=== PATIENT | male | born 1980 | race Caucasian/White ===

== ENCOUNTER 2019-08-17 19:39 | Emergency (ER) | payer BC, SELFPAY ==
[2019-08-17 19:40] VITALS: BP 156/90; PULSE 105; RESP 15; TEMP 36.6; O2SAT 96; BMI 30.7
--- NOTE | 2019-08-17 20:12 | US_ITS ---
HISTORY: RLE PAIN MOSTLY POSTERIOR RT KNEE AND CALF- X 1 WEEK EXAMINATION: US Venous Duplex LE Unilat / Limited TECHNIQUE: Corey scale, pulse wave, and color flow Doppler imaging was performed of the lower extremity venous system. The right greater saphenous, common femoral, femoral, and popliteal veins were interrogated. 17 cine clips. 6 images COMPARISON: None FINDINGS: There is normal compression, augmentation, and signal throughout the visualized deep lower extremity veins. Contralateral flow was demonstrated in the left common femoral vein. Superficial varices are present within the medial right thigh and calf US/Venous Duplex Imag/Limited/Uni IMPRESSION: No sonographic evidence of deep venous thrombosis. Superficial varices within the posterior medial distal thigh and calf at 2152 Reported and signed by: Nain Grijalva MD Electronically Signed: Nain Grijalva MD at 21:51 EST Tel , Service support ,
--- NOTE | 2019-08-17 21:13 | ED.VISSUMM ---
- ER Visit Summary Date of Service: 08/17/19 Chief Complaint: Right leg pain History of Present Illness: The patient is a 39 M who presents with right leg pain that has been intermittent over the last 2 months. Patient states pain is over the right distal thigh posteriorly. Patient noted some swelling over this area. Patient states pain radiates into his posterior calf. Patient states he noted some ecchymosis recently. Patient describes the pain as aching. Patient states nothing makes it better or worse. Patient denies any paresthesias or weakness. Patient denies any specific trauma or injury. Physical Examination: Vital signs are stable. Patient is afebrile. Patient is in no acute distress. Musculoskeletal exam reveals a varicose vein over the posterior aspect of the right distal thigh with some tenderness. There is no edema or ecchymosis. There is no bony crepitance or step-off. There is full range of motion of the right lower extremity. Sensation was intact to light touch in all digits. Capillary refill was less than 2 seconds in all digits. Pedal pulses are equal bilaterally. There is no calf tenderness. There is negative Homans sign. There is negative Julian sign. Test Results: Venous duplex of the right lower extremity was obtained. There is no evidence of DVT. The varicose vein was noted. Emergency Department Course and Treatment: Patient was instructed to ice and elevate the right lower extremity. Patient was instructed to take Tylenol or ibuprofen as needed for pain. Patient was instructed to follow-up with his primary care physician in 5 to 7 days for further management. Patient understood and was agreeable with the plan. All questions were answered. Disposition: Discharge home Impression: Varicose vein right thigh This note was generated with [employer] dictation software. It may contain incorrect words, spelling, and punctuation that were not noted in review of the chart prior to signing ED Disposition - Plan for ED Patient: Disposition: Home or Assisted Living Diagnosis: Varicose vein of leg Instructions: Varicose Veins Referrals: Shan Hunt MD [Primary Care Provider] - 5-7 Days
[2019-08-17 21:31] VITALS: BP 135/78; PULSE 82; RESP 16; O2SAT 98
== END 2019-08-17 21:31 | disposition home or self-care (01) ==
PROVIDERS: Emergency Provider Emergency Medicine; PCP Family Medicine
DX: I83.811 Varicose veins of right lower extremity with pain (principal); R21 Rash and other nonspecific skin eruption; J02.9 Acute pharyngitis, unspecified; M54.9 Dorsalgia, unspecified; R05 Cough
CPT/HCPCS: 93971; 99282

== ENCOUNTER → 2021-03-23 16:01 | Outpatient (CLI) | payer BC, SELFPAY | PROVIDERS: PCP Family Medicine; Referring Provider Family Medicine; Visit Provider Family Medicine | DX: Z20.822 Contact with and (suspected) exposure to COVID-19 (principal) | CPT/HCPCS: 87635; U0005; U0003 ==

== ENCOUNTER 2022-11-25 12:36 | Inpatient (IN) | payer BC, SELFPAY ==
[2022-11-25] VITALS (7 sets, daily range): BP systolic 127–171; BP diastolic 89–107; PULSE 86–113; RESP 18–32; TEMP 36.6–37.2; O2SAT 95–97; BMI 25.7; BMI 25.8
--- NOTE | 2022-11-25 12:41 | RAD_ITS ---
STUDY: X-RAY CHEST REASON FOR EXAM: Male, 42 years old. Chest pain TECHNIQUE: Single AP portable view of the chest. COMPARISON: None. FINDINGS: EKG electrodes are seen. The lungs are clear and expanded. There is no demonstrated pleural abnormality. Normal size heart. Normal mediastinum and antelmo. Normal visualized pulmonary arteries. Normal visualized aortic arch and descending thoracic aorta. Normal visualized thoracic spine. Normal visualized ribs, clavicles, and shoulders. There is no demonstrated abnormality of the visualized soft tissue structures of the upper abdomen. RAD/Chest 1 View (Portable) IMPRESSION: Normal x-ray examination of the chest. Electronically Signed: Elder Arias MD at 14:02 EDT ,
--- NOTE | 2022-11-25 12:41 | EKG12_ITS ---
Test Reason : CHEST PAIN/DISCOMFORT Blood Pressure : / mmHG Vent. Rate : 101 BPM Atrial Rate : 101 BPM P-R Int : 184 ms QRS Dur : 076 ms QT Int : 338 ms P-R-T Axes : 041 021 030 degrees QTc Int : 438 ms Sinus tachycardia Septal infarct , age undetermined Abnormal ECG Confirmed by JEANNETTE FRANCOIS, TOMEKA ([id number]), city editor JIN BAILEY ([id number]) on 11/26/2022 9:27:13 AM Referred By: CASA Confirmed By:TOMEKA MACHADO MD
[2022-11-25 13:22] LABS: Absolute Lymphocyte Count 1.11 X10^3/uL (0.83-4.51); Absolute Neutrophil Count 6.3 X10^3/uL (2.0-7.7); Basophil# 0.02 X10^3/uL; Basophil% 0.3 % (0-1); Eosinophil# 0.08 X10^3/uL; Hematocrit 48.2 % (40-54); Hemoglobin 17.5 g/dL (13.0-16.5); Lymphocyte # 1.11 X10^3/ul (0.83-4.51); Lymphocyte % 14.2 % (19-41); Mean Corp Hgb Conc 36.3 g/dL (32-36); Mean Corpuscular Hgb 30.8 pg (27.0-32.0); Mean Corpuscular Volume 84.7 fL (80-94); Mean Platelet Vol. 11.6 fl (6.2-12.0); Monocyte# 0.34 X10^3/uL; Monocyte% 4.3 % (0-10); NRBC Flagged by Analyzer 0 % (0-5); Neutrophil # 6.25 X10^3/uL (2.7-7.7); Neutrophil % 79.9 % (47-70); Platelet Count 286 K/mm3 (150-450); RBC Distribution Width CV 12.4 % (11.6-14.6); RBC Distribution Width SD 37.9 fl (35.1-43.9); Red Blood Count 5.69 M/mm3 (4.6-6.2); White Blood Count 7.8 K/mm3 (4.4-11.0)
--- NOTE | 2022-11-25 13:39 | ED.VIS.CHEST ---
HPI <PAXTON Barrientos - Last Filed: 11/25/22 15:04> History of Present Illness Chief Complaint: Chest Pain Narrative Narrative: 42-year-old male states over the last 6 days he has had an intermittent tight feeling in the left side of his chest into his armpit. It occurs with movement or walking up stairs and then resolves with rest. He has no shortness of breath, nausea, vomiting, or diaphoresis. Today he had a health screening at work and his blood pressure was high so they sent him to the ED. He stopped taking a multivitamin he is started recently because he thought this may be contributing?he takes no other medications. He did have work-up as a teenager and was told at 18 he had aortic stenosis but does not follow with a literacy tutor and never had any issues. He is never smoked and denies drug use. [facility] <PAXTON Barrientos - Last Filed: 11/25/22 15:04> [facility] Medical History (Updated 11/25/22 @ 15:[address] Bhargav Prescott MD) Aortic stenosis Home Medications NK 08/17/19 [History Last Taken Unknown] Allergy/AdvReac Type Severity Reaction Status Date / Time doxycycline Allergy Swelling Verified 11/25/22 12:36 Social History Smoking Status: Never smoker ROS <PAXTON Barrientos - Last Filed: 11/25/22 15:04> ROS ED ROS Narrative Constitutional: Negative for fever, chills, malaise. CVS: Positive for chest pain. Negative for palpitations, syncope. Respiratory: Negative for shortness of breath, cough, orthopnea. GI: Negative for abdominal pain, nausea, vomiting. Neuro: Negative for headache. Musc: Negative for joint pain, swelling. EXAM <PAXTON Barrientos - Last Filed: 11/25/22 15:04> Physical Exam Narrative Exam Narrative: CONST: Patient sitting in no acute distress. EYES: Normal inspection. NECK: Normal inspection. RESP: No respiratory distress, CTAB. CVS: Regular rate and rhythm, no murmur, no gallop. No reproducible tenderness of the chest wall. ABD: Soft and nontender, no guarding or rebound. SKIN: Color normal, no rash, warm, dry, intact. EXTREMITIES: Normal appearance, no pedal edema. No calf tenderness NEURO: Oriented x4. PSYCH: Normal affect. Const Vital Signs: 11/25/22 12:37 11/25/22 13:49 11/25/22 13:49 Temperature 98.0 F Temperature Source Temporal Pulse Rate 113 H 108 H Respiratory Rate 18 Blood Pressure 171/107 H Blood Pressure Mean 128 Pulse Ox 97 97 97 Oxygen Delivery Method Room Air Room Air 11/25/22 14:00 Temperature Temperature Source Pulse Rate 101 H Respiratory Rate 32 H Blood Pressure 144/89 H Blood Pressure Mean 107 Pulse Ox 97 Oxygen Delivery Method Room Air <Dr. Bhargav Prescott MD - Last Filed: 11/25/22 15:20> Physical Exam Const Vital Signs: 11/25/22 12:37 11/25/22 13:49 11/25/22 13:49 Temperature 98.0 F Temperature Source Temporal Pulse Rate 113 H 108 H Respiratory Rate 18 Blood Pressure 171/107 H Blood Pressure Mean 128 Pulse Ox 97 97 97 Oxygen Delivery Method Room Air Room Air 11/25/22 14:00 Temperature Temperature Source Pulse Rate 101 H Respiratory Rate 32 H Blood Pressure 144/89 H Blood Pressure Mean 107 Pulse Ox 97 Oxygen Delivery Method Room Air MDM <PAXTON Barrientos - Last Filed: 11/25/22 15:04> [facility] Narrative Medical decision making narrative: History gathered from: Patient and multiple family members at bedside Patient has had recent exertional chest pain and had a health screening today had elevated blood pressure he came in. He has no chest pain currently. He appears well and nontoxic. Initial BP 171/107, HR 113, otherwise normal vital signs. He is slightly tachycardic on exam with no murmurs. Lungs clear. He has no reproducible pain of his chest wall no pain with movement of his arm. No lower extremity edema or calf tenderness. EKG is sinus rhythm with slight ST depression in V3 and V4. No STEMI. Troponin is 96, delta 91. D-dimer is negative. Glucose is 506 with normal CO2 and anion gap consistent with new diagnosis of diabetes. CXR shows no acute process. Patient will be admitted for diabetes as well as exertional chest pain/NSTEMI and was treated with Lovenox and aspirin. Case was discussed with the hospitalist for admission. Differential: ACS, PE, musculoskeletal pain, costochondritis Lab Data Attestation: I reviewed the patient's lab results. Labs: Laboratory Results - last 24 hr 11/25/22 11/25/22 11/25/22 12:50 12:50 13:54 WBC 7.8 RBC 5.69 Hgb 17.5 H Hct 48.2 MCV 84.7 MCH 30.8 MCHC 36.3 H RDW Std Deviation 37.9 RDW Coeff of Julianne 12.4 Plt Count 286 MPV 11.6 Immature Gran % (Auto) 0.300 Neut % (Auto) 79.9 H Lymph % (Auto) 14.2 L [place] % (Auto) 4.3 Eos % (Auto) 1.0 Baso % (Auto) 0.3 Absolute Neuts (auto) 6.3 Absolute Lymphs (auto) 1.11 Nucleated RBC % 0 D-Dimer Quant (PE/DVT) Sodium 132 L Potassium 4.0 Chloride 97 L Carbon Dioxide 26.0 Anion Gap 9 BUN 14 Creatinine 1.16 Estim Creat Clear Calc 86.53 Est GFR (MDRD) Af Amer 89 Est GFR (MDRD) Non-Af 74 BUN/Creatinine Ratio 12.1 Glucose 506 H* Calcium 9.2 Troponin I High Sens 96 H Acetone Level POC Glucose 476 H* 11/25/22 11/25/22 11/25/22 14:01 14:01 14:01 WBC RBC Hgb Hct MCV MCH MCHC RDW Std Deviation RDW Coeff of Julianne Plt Count MPV Immature Gran % (Auto) Neut % (Auto) Lymph % (Auto) [place] % (Auto) Eos % (Auto) Baso % (Auto) Absolute Neuts (auto) Absolute Lymphs (auto) Nucleated RBC % D-Dimer Quant (PE/DVT) < 0.27 L Sodium Potassium Chloride Carbon Dioxide Anion Gap BUN Creatinine Estim Creat Clear Calc Est GFR (MDRD) Af Amer Est GFR (MDRD) Non-Af BUN/Creatinine Ratio Glucose Calcium Troponin I High Sens 91 H Acetone Level NEGATIVE POC Glucose Radiography Diagnostic Testing: Clinical Impression(s) from Imaging Studies Chest X-Ray 11/25/22 12:41 IMPRESSION: Normal x-ray examination of the chest. Electronically Signed: Elder Arias MD at 14:02 EDT , <Dr. Bhargav Prescott MD - Last Filed: 11/25/22 15:20> [facility] Lab Data Labs: Laboratory Results - last 24 hr 11/25/22 11/25/22 11/25/22 12:50 12:50 13:54 WBC 7.8 RBC 5.69 Hgb 17.5 H Hct 48.2 MCV 84.7 MCH 30.8 MCHC 36.3 H RDW Std Deviation 37.9 RDW Coeff of Julianne 12.4 Plt Count 286 MPV 11.6 Immature Gran % (Auto) 0.300 Neut % (Auto) 79.9 H Lymph % (Auto) 14.2 L [place] % (Auto) 4.3 Eos % (Auto) 1.0 Baso % (Auto) 0.3 Absolute Neuts (auto) 6.3 Absolute Lymphs (auto) 1.11 Nucleated RBC % 0 D-Dimer Quant (PE/DVT) Sodium 132 L Potassium 4.0 Chloride 97 L Carbon Dioxide 26.0 Anion Gap 9 BUN 14 Creatinine 1.16 Estim Creat Clear Calc 86.53 Est GFR (MDRD) Af Amer 89 Est GFR (MDRD) Non-Af 74 BUN/Creatinine Ratio 12.1 Glucose 506 H* Calcium 9.2 Troponin I High Sens 96 H Acetone Level POC Glucose 476 H* 11/25/22 11/25/22 11/25/22 14:01 14:01 14:01 WBC RBC Hgb Hct MCV MCH MCHC RDW Std Deviation RDW Coeff of Julianne Plt Count MPV Immature Gran % (Auto) Neut % (Auto) Lymph % (Auto) [place] % (Auto) Eos % (Auto) Baso % (Auto) Absolute Neuts (auto) Absolute Lymphs (auto) Nucleated RBC % D-Dimer Quant (PE/DVT) < 0.27 L Sodium Potassium Chloride Carbon Dioxide Anion Gap BUN Creatinine Estim Creat Clear Calc Est GFR (MDRD) Af Amer Est GFR (MDRD) Non-Af BUN/Creatinine Ratio Glucose Calcium Troponin I High Sens 91 H Acetone Level NEGATIVE POC Glucose Radiography Diagnostic Testing: Clinical Impression(s) from Imaging Studies Chest X-Ray 11/25/22 12:41 IMPRESSION: Normal x-ray examination of the chest. Electronically Signed: Elder Arias MD at 14:02 EDT , Rhythm Strip Rhythm Strip: Sinus Tach Rate: 105 Ectopy: None EKG Initial EKG: Attestation: I personally reviewed and interpreted this EKG as follows: Interpretation: No Acute Injury Pattern and S-T Depression (Septal leads only. No ST elevation.) Prior EKG tracings: not available for review Prior: No Prior Management Discussion w/another healthcare provider: Hospitalist Treatment and Re-Evaluation Comments:: Seen and evaluated independently and in conjunction with physician assistant golf professional. Agree with notes above unless documented otherwise. Exertional visceral left-sided chest discomfort with radiation into the axilla and proximal left upper extremity for the past 5 or 6 days. No symptoms at rest. Nonpleuritic. No syncope, near syncope, diaphoresis, cough, fevers or chills. Incidentally he states he has had significant urinary frequency for about the past 2 months. Has not seen his doctor for several years, basically goes when he feels like he needs to. On exam is well-appearing in no distress mild tachycardia, clear to auscultation throughout, speaking in full sentences, no pedal edema or calf tenderness. Viewed/reviewed cardiac work-up and significant hyperglycemia. Troponin abnormal twice. Will give aspirin, Lovenox, plan is for admission. Discharge Plan Triage Chief Complaint: Chest Pain ED Midlevel Provider: Selam Lira ED Provider: Bhargav Prescott Dx/Rx/DC Orders Clinical Impression: ACS (acute coronary syndrome), Diabetes mellitus, new onset Primary Care Provider: Shan Hunt Disposition Disposition: Acute Care Hospital [facility]
[2022-11-25 13:51] LABS: Anion Gap 9 (5-15); BUN 14 mg/dL (7-18); BUN/Creat Ratio 12.1 RATIO (10-20); Calcium,Total 9.2 mg/dL (8.5-10.1); Chloride 97 mmol/L (98-107); Creatinine, Serum 1.16 mg/dL (0.70-1.30); EST Glomerular Filtration Rate 74 mL/min (>60); Est Glom Filt Rate - Afr Amer 89 mL/min (>60); Estimated Creatinine Clearance 86.53 ml/min; Glucose 506 mg/dL (74-106); Sodium Level 132 mmol/L (136-145); Troponin-I HS (w/2H Reflex) 96 pg/mL (3.0-78.0)
[2022-11-25] MEDS: 0.9% Normal Saline 1,000 ML 999 ML IV (14:07)
[2022-11-25 14:15] LABS: Bedside Glucose 476 mg/dL (74-106)
[2022-11-25 14:21] LABS: D-Dimer Quantitative (DVT/PE) < 0.27 FEU/ug/m (0.27-0.49)
[2022-11-25 14:22] LABS: Troponin-I HS 91 pg/mL (3.0-78.0)
--- NOTE | 2022-11-25 15:04 | PCM.HP.STD ---
HPI - General General Date of Admission: 11/25/22 Date of Service: 11/25/22 Chief Complaint: Atypical chest pain for 5 days, high blood pressure, and hyperglycemia HPI Narrative LAZ HERRERA, is a 42 M to ED for atypical chest tightness over left lateral side with radiation to left armpit/axillary region since last Tuesday for 5 days. He describes chest tightness as short lasting for few minutes, comes when he starts walking last for few minutes and then goes away. It happens all throughout the day about 10-12 times and increasingly more frequent. This is nonexertional as he works as a computer science intern mainly desktop job. He denies other associated symptoms of shortness of breath, palpitation, flutters, dizziness or syncope. His blood pressure in ER was high 171/107, heart rate 113/min. No hypoxia or tachypnea. Twelve-lead done in the EKG shows sinus tachycardia otherwise no specific ST-T changes suggesting ischemia. History troponin 96 and 91. In ED, blood pressure is spontaneously got better 144/89. Patient also found to have hyperglycemia, glucose 506 in BMP. Patient states for last 2-month he wakes up at night twice to drink more water and urination consistent with polydipsia and polyuria. Family history: Her father had coronary bypass surgery at age of 39. His mother also has ND/coronary artery disease and stents. Social history: Denies history of smoking or heavy alcohol drinking. No substance use. [facility] Medical History Aortic stenosis Home Medications NK 08/17/19 [History Last Taken Unknown] Allergy/AdvReac Type Severity Reaction Status Date / Time doxycycline Allergy Swelling Verified 11/25/22 12:36 Social History Smoking Status: Never smoker ROS ROS Narrative Constitutional: Denies fatigue and weakness. No fever. HEENT: Reports systems reviewed and no addt'l complaints, except as documented Respiratory/Chest: No acute shortness of breath or respiratory distress or wheezing. CVS: As described in HPI. History of aortic stenosis. Gastrointestinal: Denies coffee ground emesis, hematemesis or vomiting Genitourinary: Polyuria and increased frequency for 2 months. Denies burning urination. Musculoskeletal: Denies acute joint pain or limited range of motion. No acute injury Neurologic: Denies seizure-like symptoms. No strokelike symptoms. skin: No ulcer. No rash Endocrinology: New onset diabetes mellitus. Reports systems reviewed and no addt'l complaints, except as documented Hematologic/Lymphatic: Reports systems reviewed and no addt'l complaints, except as documented Rest 14 ROS are negative except as mentioned in HPI Vital Signs Vital Signs Vital Signs: 11/25/22 12:37 11/25/22 13:49 11/25/22 13:49 Temperature 98.0 F Temperature Source Temporal Pulse Rate 113 H 108 H Respiratory Rate 18 Blood Pressure 171/107 H Blood Pressure Mean 128 Pulse Ox 97 97 97 Oxygen Delivery Method Room Air Room Air 11/25/22 14:00 Temperature Temperature Source Pulse Rate 101 H Respiratory Rate 32 H Blood Pressure 144/89 H Blood Pressure Mean 107 Pulse Ox 97 Oxygen Delivery Method Room Air Weight Weight: 179 lb 3.2 oz Body Mass Index (BMI) 25.7 Physical Exam Narrative General: Alert, Oriented x3, Cooperative HEENT: Atraumatic, PERRLA, EOMI, Normocephalic Oral: Oral mucosa dry. No Gingival or Mucosal Lesions/ Ulcerations Neck: Supple, No JVD, Negative Carotid Bruits Lungs: Air entry diminished in bilateral lung bases. No crepitation/rhonchi Cardiovascular: Sinus tachycardia, Normal S1, Normal S2, no significant/audible murmur. Abdomen: Bowel Sounds Present, Soft, Non Tender, Non-Distended : No renal angle tenderness. No suprapubic tenderness. Extremities: No edema, Capillary Refill Less than 3 Seconds Skin: No rashes, No breakdown Musculoskeletal: No Tenderness to Palpation of Joints or Extremities Neurological: Cranial nerves II-XII grossly intact, DTR 2+/4 and Symmetrical, Neuro grossly intact Psych/Mental Status: Normal Affect, Appropriate. Results Lab / Micro Data Result Diagrams: 11/25/22 12:50 11/25/22 12:50 Labs: Laboratory Results - last 24 hr 11/25/22 12:50: WBC 7.8, RBC 5.69, Hgb 17.5 H, Hct 48.2, MCV 84.7, MCH 30.8, MCHC 36.3 H, RDW Std Deviation 37.9, RDW Coeff of Julianne 12.4, Plt Count 286, MPV 11.6, Immature Gran % (Auto) 0.300, Neut % (Auto) 79.9 H, Lymph % (Auto) 14.2 L, [place] % (Auto) 4.3, Eos % (Auto) 1.0, Baso % (Auto) 0.3, Absolute Neuts (auto) 6.3, Absolute Lymphs (auto) 1.11, Nucleated RBC % 0 11/25/22 12:50: Sodium 132 L, Potassium 4.0, Chloride 97 L, Carbon Dioxide 26.0, Anion Gap 9, BUN 14, Creatinine 1.16, Estim Creat Clear Calc 86.53, Est GFR (MDRD) Af Amer 89, Est GFR (MDRD) Non-Af 74, BUN/Creatinine Ratio 12.1, Glucose 506 H*, Calcium 9.2, Troponin I High Sens 96 H 11/25/22 13:54: POC Glucose 476 H* 11/25/22 14:01: D-Dimer Quant (PE/DVT) < 0.27 L 11/25/22 14:01: Acetone Level NEGATIVE 11/25/22 14:01: Troponin I High Sens 91 H Radiology Impression Chest X-Ray 11/25/22 12:41 IMPRESSION: Normal x-ray examination of the chest. Electronically Signed: lEder Arias MD at 14:02 EDT , Assessment & Plan Assessment/Plan (1) ACS (acute coronary syndrome): (2) Diabetes mellitus, new onset: PLAN: Plan This is 42-year-old gentleman came to ED for atypical chest pain along with high blood pressure and hyperglycemia. 1. Atypical chest tightness possible acute coronary syndrome/unstable angina: Patient is being admitted in PCU on telemetry. First troponin 96-second troponin 91. D-dimer negative. 2 Twelve-lead EKG individually reviewed and does not show acute significant ST-T changes suggestive of acute ischemia.FRANKIE risk score 3 with 3 coronary artery disease risk factors, angina and positive cardiac marker. [employer] is consulted. Cycle cardiac enzymes. Currently patient does not have chest pain. Patient on aspirin, 1 loading therapeutic dose enoxaparin given in ED, carvedilol and high intensity atorvastatin started. Nitro sublingual as needed for chest pain. Serum magnesium and phosphorus level are normal. 2D echo is ordered. 2. New onset hyperglycemia most likely diabetes mellitus type 2: Glucose was 506 in BMP. Fingerstick 476. Patient also has 2-month history of polydipsia, polyuria and polyphagia. In conclusion it seems patient has type 2 diabetes mellitus. A1c ordered for tomorrow AM. Accu-Chek before meals and cover with Humalog sliding and started on long-acting insulin. 3. Uncontrolled high blood pressure: Patient does not have diagnosis of hypertension but blood pressure high in the 170s systolic in 150s. Started on lisinopril 10 mg daily. 4. Strong family history of coronary artery disease father had CABG at the age of 39 and mother has stents. 5. VTE prophylaxis: On therapeutic dose of Lovenox. Laboratory Results 11/25/22 12:50: WBC 7.8, RBC 5.69, Hgb 17.5 H, Hct 48.2, MCV 84.7, MCH 30.8, MCHC 36.3 H, RDW Std Deviation 37.9, RDW Coeff of Julianne 12.4, Plt Count 286, MPV 11.6, Immature Gran % (Auto) 0.300, Neut % (Auto) 79.9 H, Lymph % (Auto) 14.2 L, [place] % (Auto) 4.3, Eos % (Auto) 1.0, Baso % (Auto) 0.3, Absolute Neuts (auto) 6.3, Absolute Lymphs (auto) 1.11, Nucleated RBC % 0 11/25/22 12:50: Sodium 132 L, Potassium 4.0, Chloride 97 L, Carbon Dioxide 26.0, Anion Gap 9, BUN 14, Creatinine 1.16, Estim Creat Clear Calc 86.53, Est GFR (MDRD) Af Amer 89, Est GFR (MDRD) Non-Af 74, BUN/Creatinine Ratio 12.1, Glucose 506 H*, Calcium 9.2, Troponin I High Sens 96 H 11/25/22 13:54: POC Glucose 476 H* 11/25/22 14:01: D-Dimer Quant (PE/DVT) < 0.27 L 11/25/22 14:01: Acetone Level NEGATIVE 11/25/22 14:01: Troponin I High Sens 91 H 11/25/22 14:01: Phosphorus 3.3, Magnesium 2.1 11/25/22 15:00: Urine Color Yellow, Urine Clarity Clear, Urine pH 7.0, Ur Specific [place] 1.010, Urine Protein Negative, Urine Glucose (UA) 1000 H, Urine Ketones 15 H, Urine Occult Blood Negative, Urine Nitrite Negative, Urine Bilirubin Negative, Urine Urobilinogen Normal, Ur Leukocyte Esterase Negative, Urine RBC 0 SEEN, Urine WBC 0 SEEN, Ur Squamous Epith Cells 0-5 SEEN, Urine Bacteria 0 SEEN, Urine Mucus 0 SEEN Charges/Coding Visit Charges Inpatient E&M: 36530 Init Hosp L3
[2022-11-25] MEDS: Enoxaparin 80 MG/0.8 ML Syringe SC (15:06)
[2022-11-25 15:23] LABS: Bacteria 0 SEEN /hpf (None Seen); Mucous, Urine 0 SEEN /hpf (<or=2+); Red Blood Cells-Urine 0 SEEN /hpf (0-5); White Blood Cells 0 SEEN /hpf (0-5)
[2022-11-25] MEDS: Aspirin 81 MG TAB.CHEW 162 MG PO (15:26)
[2022-11-25 16:09] LABS: Color, Urine Yellow (Yellow); Glucose, Dipstick 1000 mg/dl (Normal); Ketone-Dipstick 15 mg/dl (Negative); Leukocyte Esterase-Dipstick Negative /ul (Negative); Nitrite-Dipstick Negative (Negative); Occult Blood-Urine Negative /ul (Negative); Protein-Dipstick Negative (Negative); Urine Bilirubin Dipstick Negative (Negative); Urine Clarity Clear (Clear); Urine Urobilinogen Normal (Normal)
--- NOTE | 2022-11-25 16:19 | EKG12_ITS ---
Test Reason : AM EKG Blood Pressure : / mmHG Vent. Rate : 074 BPM Atrial Rate : 074 BPM P-R Int : 180 ms QRS Dur : 098 ms QT Int : 408 ms P-R-T Axes : 020 003 009 degrees QTc Int : 452 ms Normal sinus rhythm Normal ECG When compared with ECG of 25-NOV-2022 16:49, MANUAL COMPARISON REQUIRED, DATA IS UNCONFIRMED Confirmed by JEANNETTE FRANCOIS, TOMEKA ([id number]), desk editor JIN BAILEY ([id number]) on 11/26/2022 1:10:06 PM Referred By: LAURA Confirmed By:TOMEKA MACHADO MD
[2022-11-25 16:32] LABS: Magnesium 2.1 mg/dL (1.6-2.6); Phosphorus 3.3 mg/dL (2.5-4.9)
[2022-11-25 16:39] LABS: Squamous Epithelial Cells - UA 0-5 SEEN /hpf (0-5)
[2022-11-25] MEDS: 0.9% Normal Saline 1,000 ML 150 ML IV ×2 (17:17→23:51)
[2022-11-25] MEDS: Carvedilol 12.5 MG Tablet PO ×2 (17:55→21:38)
--- NOTE | 2022-11-25 18:04 | ECHOCS_ITS ---
Reason For Study: Chest Pain Procedure This was a 2D Doppler, Color Flow transthoracic echocardiogram. Contrast injection was performed. Exam performed portable in patient room. Left Ventricle Normal LV size. Moderate segmental systolic dysfunction (see wall motion). The estimated ejection fraction is 35 %. Mid-Anterior : Severely Hypokinetic. Mid-anteroseptal : Hypokinetic. [place] : Severely Hypokinetic. Right Ventricle Normal RV size. Normal systolic function. Atria Normal left atrium. Normal right atrium. Mitral Valve Normal mitral valve. Mild (1+) eccentric mitral valve insufficiency. Tricuspid Valve Normal tricuspid valve. Mild tricuspid valve insufficiency. Aortic Valve Bicuspid aortic valve. Mild (1+) eccentric aortic valve insufficiency. Pulmonic Valve Normal pulmonic valve. Great Vessels Normal aortic root. The pulmonary artery is normal size. Normal inferior vena cava. Pericardium/Pleural No pericardial effusion. Medication Diluted definity 3.5ml given slow IV push to enhance endocardial definition. MMode/2D Measurements & Calculations LVIDd: 5.5 cm IVSd: 1.1 cm Ao root diam: 3.6 cm LVIDs: 4.4 cm LVPWd: 0.73 cm LA dimension: 3.5 cm RVDd: 3.3 cm FS: 19.9 % LAV(MOD-bp): 31.1 ml LVAd ap4: 45.5 cm2 SV(MOD-sp4): 78.9 ml LAV(MOD-bp) Indexed: 15.6 ml/m2 LVLd ap4: 9.4 cm LAV(MOD-sp2): 30.7 ml EDV(MOD-sp4): 178.7 ml LAV(MOD-sp4): 28.2 ml EDV(sp4-el): 187.3 ml LVAs ap4: 31.3 cm2 LVLs ap4: 7.9 cm ESV(MOD-sp4): 99.7 ml ESV(sp4-el): 104.6 ml EF(MOD-sp4): 44.2 % EF(sp4-el): 44.2 % SV(sp4-el): 82.7 ml Aortic Valve Planimetry: 4.0 cm2 LA A4 area: 13.0 cm2 RA A4 area: 12.3 cm2 Time Measurements MV dec time: 0.23 sec Doppler Measurements & Calculations MV E max kulwinder: 59.2 cm/sec Lat Peak E' Kulwinder: 9.5 cm/sec Med Peak E' Kulwinder: 9.6 cm/sec MV A max kulwinder: 50.7 cm/sec E/E' lat: 6.3 E/E' med: 6.2 MV E/A: 1.2 MV V2 max: 77.2 cm/sec MV P1/2t max kulwinder: 77.8 cm/sec Ao V2 max: 145.1 cm/sec MV max P.4 mmHg MV P1/2t: 70.7 msec Ao max P.5 mmHg MV V2 mean: 42.2 cm/sec MV dec slope: 322.3 cm/sec2 Ao V2 mean: 105.9 cm/sec MV mean P.84 mmHg MVA(P1/2t): 3.1 cm2 Ao mean P.1 mmHg MV V2 VTI: 17.8 cm Ao V2 VTI: 27.2 cm AV (velocity ratio): 0.56 LV V1 max: 76.0 cm/sec MR max kulwinder: 509.6 cm/sec PA V2 max: 76.5 cm/sec LV V1 max P.3 mmHg MR max P.9 mmHg PA V2 mean: 50.2 cm/sec LV V1 mean P.4 mmHg MR mean kulwinder: 398.0 cm/sec LV V1 mean: 56.5 cm/sec MR mean P.4 mmHg LV V1 VTI: 15.2 cm MR VTI: 169.5 cm TR max kulwinder: 208.1 cm/sec TR max P.3 mmHg ECHO/Echo Complete W/ Contrast Interpretation Summary Moderate segmental systolic dysfunction (see wall motion). Normal LV size. The estimated ejection fraction is 35 %. Bicuspid aortic valve. Mild (1+) eccentric aortic valve insufficiency. Mild (1+) eccentric mitral valve insufficiency. Contrast injection was performed. Ordering Physician: Nirmal Cunningham Referring Physician: Shan Hunt Performed By: Don Maier RCS
--- NOTE | 2022-11-25 18:07 | PCM.CONS.C ---
Assessment & Plan Assessment/Plan (1) ACS (acute coronary syndrome): (2) Diabetes mellitus, new onset: PLAN: Plan Patient is a 42-year-old/significant family history of CAD Presented with symptoms of chest pain. Described as intermittent tight feeling in the left side of the chest radiating to the left arm mainly noted with movement or walking upstairs and resolve with rest. No other associated symptoms Currently not on any medication. Bedside cardiac examination is normal Review of the EKG showed minor change in the anterior lead Subsequent evaluation with cardiac markers showed elevated high sensitive troponin Cardiac care plan recommendations; 1. We will treat as non-STEMI, troponins high 96, blood glucose 506/renal function normal with a creatinine of 1.16 D-dimer less than 0.27 with heparin, aspirin, atorvastatin, beta-yesenia carvedilol 2. Patient is newly diagnosed diabetes mellitus with significant elevated blood glucose to monitor the diabetes with insulin Sliding scale 3. Discussed in detail the cardiac care plan with the patient, nursing staff and the family Recommended to proceed with cardiac catheterization/right radial artery approach HPI Consult Data Date of Consult: 11/25/22 HPI Narrative Reason for Consultation: CAD/NSTEMI/newly diagnosed diabetes HPI Narrative: LAZ HERRERA, is a 42 M who presents [facility] Medical History Aortic stenosis Home Medications NK 08/17/19 [History Last Taken Unknown] Allergy/AdvReac Type Severity Reaction Status Date / Time doxycycline Allergy Swelling Verified 11/25/22 12:36 Social History Smoking Status: Never smoker ROS ROS Narrative 14 point review of system unremarkable apart from current presentation With symptoms of chest pain Physical Exam Narrative Evaluation and examination along with the nursing staff Family at bedside Comfortable not having active chest pain at time of evaluation Cardiac rhythm is normal sinus Cardiovascular exam S1-S2 regular Chest exam clear to auscultation bilateral Examination of lower extremity no lower extremity edema, pedal pulses palpable. Risk Stratification Risk Stratification Applicable: Yes Age >/= 65: No >/= 3 CAD Risk Factors (HTN, HLD, DM, family hx of CAD, or current smoker): Yes Aspirin Use in the Past 7 Days: Yes Severe Angina (>/= episodes in 24 hours): Yes EKG ST Changes >/= 0.5mm: Yes Positive Cardiac Marker: Yes FRANKIE Risk Stratification Score: 5 FRANKIE % Risk: 25% Risk Objective Data Vital Signs: Vital Signs Temp Pulse Resp BP Pulse Ox O2 Del Method 97.9 F 93 18 152/96 H 95 Room Air 11/25/22 16:30 11/25/22 16:30 11/25/22 16:30 11/25/22 16:30 11/25/22 17:05 11/25/22 17:05 Oxygen Delivery Method Room Air Weight: 180 lb Body Mass Index (BMI) 25.8 Intake & Output: Intake and Output for Last 24 Hours 11/23/22 11/24/22 11/25/22 23:59 23:59 23:59 Intake Total 1650 / 1650 Balance 1650 / 1650 Lab / Micro Data Result Diagrams: 11/25/22 12:50 11/25/22 12:50 Labs: Laboratory Results - last 24 hr 11/25/22 12:50: WBC 7.8, RBC 5.69, Hgb 17.5 H, Hct 48.2, MCV 84.7, MCH 30.8, MCHC 36.3 H, RDW Std Deviation 37.9, RDW Coeff of Julianne 12.4, Plt Count 286, MPV 11.6, Immature Gran % (Auto) 0.300, Neut % (Auto) 79.9 H, Lymph % (Auto) 14.2 L, [place] % (Auto) 4.3, Eos % (Auto) 1.0, Baso % (Auto) 0.3, Absolute Neuts (auto) 6.3, Absolute Lymphs (auto) 1.11, Nucleated RBC % 0 11/25/22 12:50: Sodium 132 L, Potassium 4.0, Chloride 97 L, Carbon Dioxide 26.0, Anion Gap 9, BUN 14, Creatinine 1.16, Estim Creat Clear Calc 86.53, Est GFR (MDRD) Af Amer 89, Est GFR (MDRD) Non-Af 74, BUN/Creatinine Ratio 12.1, Glucose 506 H*, Calcium 9.2, Troponin I High Sens 96 H 11/25/22 13:54: POC Glucose 476 H* 11/25/22 14:01: D-Dimer Quant (PE/DVT) < 0.27 L 11/25/22 14:01: Acetone Level NEGATIVE 11/25/22 14:01: Troponin I High Sens 91 H 11/25/22 14:01: Phosphorus 3.3, Magnesium 2.1 11/25/22 15:00: Urine Color Yellow, Urine Clarity Clear, Urine pH 7.0, Ur Specific [place] 1.010, Urine Protein Negative, Urine Glucose (UA) 1000 H, Urine Ketones 15 H, Urine Occult Blood Negative, Urine Nitrite Negative, Urine Bilirubin Negative, Urine Urobilinogen Normal, Ur Leukocyte Esterase Negative, Urine RBC 0 SEEN, Urine WBC 0 SEEN, Ur Squamous Epith Cells 0-5 SEEN, Urine Bacteria 0 SEEN, Urine Mucus 0 SEEN Rhythm Strip Rhythm Strip: Sinus Tach Rate: 105 Ectopy: None Cardiology Labs/Tests 11/25/22 12:50: WBC 7.8, RBC 5.69, Hgb 17.5 H, Hct 48.2, MCV 84.7, MCH 30.8, MCHC 36.3 H, Plt Count 286, MPV 11.6, Immature Gran % (Auto) 0.300, Neut % (Auto) 79.9 H, Lymph % (Auto) 14.2 L, [place] % (Auto) 4.3, Eos % (Auto) 1.0, Baso % (Auto) 0.3, Absolute Neuts (auto) 6.3, Nucleated RBC % 0 11/25/22 12:50: Sodium 132 L, Potassium 4.0, Chloride 97 L, Carbon Dioxide 26.0, Anion Gap 9, BUN 14, Creatinine 1.16, Est GFR (MDRD) Af Amer 89, Est GFR (MDRD) Non-Af 74, BUN/Creatinine Ratio 12.1, Glucose 506 H*, Calcium 9.2 11/25/22 14:01: D-Dimer Quant (PE/DVT) < 0.27 L 11/25/22 14:01: Phosphorus 3.3, Magnesium 2.1 11/25/22 15:00: Urine Color Yellow, Urine Clarity Clear, Urine pH 7.0, Ur Specific [place] 1.010, Urine Protein Negative, Urine Glucose (UA) 1000 H, Urine Ketones 15 H, Urine Occult Blood Negative, Urine Nitrite Negative, Urine Bilirubin Negative, Urine Urobilinogen Normal, Ur Leukocyte Esterase Negative, Urine RBC 0 SEEN, Urine WBC 0 SEEN Rhythm: EKG: ECHO: Stress Test: Cardiac Cath: PCI: CT Surgery: Holter monitor: EPS: PPM: CXR: Chest CT Scan: Radiography Diagnostic Testing: Radiology Impression Chest X-Ray 11/25/22 12:41 IMPRESSION: Normal x-ray examination of the chest. Electronically Signed: Elder Arias MD at 14:02 EDT ,
[2022-11-25 18:29] LABS: Partial Thromboplast Time 26.2 Seconds (24.1-36.2)
[2022-11-25] MEDS: HEPARIN/D5w 25,000 UNITS 25,000 UNITS/250 ML IV.SOLN. 10 UNITS CONT INF (18:40)
[2022-11-25 19:47] LABS: Troponin-I HS 125 pg/mL (3.0-78.0)
[2022-11-25] MEDS: Atorvastatin Calcium 40 MG Tablet PO (21:38)
[2022-11-25] MEDS: Insulin Lispro 100 UNIT/ML INSULN.PEN SC (22:24)
[2022-11-26] VITALS (14 sets, daily range): BP systolic 98–127; BP diastolic 58–91; PULSE 74–92; RESP 16–18; TEMP 36.4–36.9; O2SAT 95–99
[2022-11-26 00:28] LABS: Partial Thromboplast Time 55.8 Seconds (24.1-36.2)
--- NOTE | 2022-11-26 00:48 | NURSING ---
PTT in goal at 55.8, heparin gtt maintained @10ml/hr and keypad locked
[2022-11-26 01:35] LABS: Bedside Glucose 322 mg/dL (74-106)
--- NOTE | 2022-11-26 05:55 | EKG12_ITS ---
Test Reason : CP ADMIN Blood Pressure : / mmHG Vent. Rate : 088 BPM Atrial Rate : 088 BPM P-R Int : 172 ms QRS Dur : 096 ms QT Int : 362 ms P-R-T Axes : 025 006 012 degrees QTc Int : 438 ms Normal sinus rhythm Minimal voltage criteria for LVH, may be normal variant ( R in aVL ) Borderline ECG When compared with ECG of 25-NOV-2022 12:45, MANUAL COMPARISON REQUIRED, DATA IS UNCONFIRMED Confirmed by JEANNETTE FRANCOIS, TOMEKA ([id number]), photographic editor JIN BAILEY ([id number]) on 11/26/2022 1:11:13 PM Referred By: Confirmed By:TOMEKA MACHADO MD
[2022-11-26 06:21] LABS: Absolute Lymphocyte Count 2.29 X10^3/uL (0.83-4.51); Absolute Neutrophil Count 3.6 X10^3/uL (2.0-7.7); Basophil# 0.04 X10^3/uL; Basophil% 0.6 % (0-1); Eosinophil# 0.19 X10^3/uL; Eosinophils% 2.9 % (0-5); Hematocrit 41.3 % (40-54); Hemoglobin 14.1 g/dL (13.0-16.5); Lymphocyte # 2.29 X10^3/ul (0.83-4.51); Mean Corp Hgb Conc 34.1 g/dL (32-36); Mean Corpuscular Hgb 30.1 pg (27.0-32.0); Mean Corpuscular Volume 88.1 fL (80-94); Mean Platelet Vol. 11.5 fl (6.2-12.0); Monocyte# 0.44 X10^3/uL; Monocyte% 6.7 % (0-10); NRBC Flagged by Analyzer 0 % (0-5); Neutrophil # 3.56 X10^3/uL (2.7-7.7); Neutrophil % 54.5 % (47-70); Platelet Count 215 K/mm3 (150-450); RBC Distribution Width CV 12.1 % (11.6-14.6); RBC Distribution Width SD 38.5 fl (35.1-43.9); Red Blood Count 4.69 M/mm3 (4.6-6.2); White Blood Count 6.5 K/mm3 (4.4-11.0)
[2022-11-26] MEDS: Aspirin E.C. 81 MG Tablet PO (06:21)
[2022-11-26] MEDS: Carvedilol 12.5 MG Tablet PO ×2 (06:21→20:58)
[2022-11-26] MEDS: Lisinopril 10 MG Tablet PO (06:21)
[2022-11-26 06:31] LABS: Partial Thromboplast Time 60.4 Seconds (24.1-36.2)
[2022-11-26] MEDS: Insulin Lispro 100 UNIT/ML INSULN.PEN SC ×4 (06:41→22:05)
[2022-11-26 06:55] LABS: Bedside Glucose 280 mg/dL (74-106)
[2022-11-26 07:26] LABS: Anion Gap 5 (5-15); BUN 10 mg/dL (7-18); Calcium,Total 7.7 mg/dL (8.5-10.1); Chloride 105 mmol/L (98-107); Cholesterol 146 mg/dL (200); Creatinine, Serum 0.77 mg/dL (0.70-1.30); EST Glomerular Filtration Rate 118 mL/min (>60); Est Glom Filt Rate - Afr Amer 143 mL/min (>60); Estimated Creatinine Clearance 130.36 ml/min; Glucose 284 mg/dL (74-106); High Density Lipoprotein 21 mg/dL; Potassium 3.5 mmol/L (3.5-5.1); Sodium Level 136 mmol/L (136-145); Thyroid Stim Hormone (TSH) 2.04 uIU/mL (0.358-3.74); Triglycerides 317 mg/dL; Very Low Density Lipoprotein 63 mg/dL (5-40)
[2022-11-26 07:32] LABS: Hemoglobin A1c 12.2 % (3.8-5.6)
--- NOTE | 2022-11-26 09:24 | CL.D_ITS ---
Patient Name: LAZ HERRERA Study Date: 11/26/2022 Performing: Steven Watson MD Ht: 70 inches 177.8 cm : 1980 Wt: 180.01 lbs 81.65 kg Age: 42 Gender: male BSA: 2 PROCEDURE(S) PERFORMED DC02-(03578)LHC/COR IC12-(58015/C9600)DONA W/WO PTCA, SINGLE CORONARY ARTERY CLINICAL PROFILE AND INDICATIONS Indications: Worsening Angina Heart Failure: None Stress/Imaging Stress/Image Study Performed: No CAD Presentations: Unstable angina. CONCLUSIONS Severe single-vessel disease with high-grade proximal LAD stenosis, moderate diagonal disease and moderate circumflex and right coronary artery stenosis. Bicuspid aortic valve. RECOMMENDATIONS Referred for immediate PCI We will follow-up on bicuspid aortic valve DESCRIPTION OF PROCEDURE The patient arrived to the procedure lab. The risks and benefits of the procedure as well as a full description of our services here and current unavailability of surgical backup were fully explained to the patient and/or their significant other prior to the catheterization. The Timeout was completed, verifying the correct patient and procedure. The patient's procedural site was prepped and draped in the usual fashion. Local anesthetic was given subcutaneously to right radial region with Lidocaine 2%. Using a modified Seldinger technique, arterial access was obtained via the right radial artery, a 6Fr sheath was inserted. Left Coronary Artery selective angiography was performed in multiple views using a 5 Fr. 4.0 [place] catheter. Right Coronary Artery selective angiography was then performed in multiple views using a 5 Fr. 4.0 [place] catheter.The arterial sheath was pulled and a TR Band was applied for hemostasis. 10cc of air CORONARY ANGIOGRAPHY DOMINANCE: Right Dominant LEFT HEART ASSESSMENT Left Ventricular Ejection Fraction: by Echo 35 % Anterior Hypokinesis - Moderate Depressed Left Ventricular systolic function LEFT MAIN: Angiographically normal LEFT ANTERIOR DESCENDING ARTERY: PROX LAD: 99 % Stenosis DIAGONAL 1: Proximal - 60 % Stenosis CIRCUMFLEX ARTERY: Mild luminal irregularities RIGHT CORONARY ARTERY: MID RCA: 40 % Stenosis VALVE FINDINGS: Bicuspid Aortic Valve COMPLICATIONS No Complications PROCEDURE MEDICATIONS Fentanyl 50 mcg IV Versed 1 mg IV Versed 1 mg IV Versed 1 mg IV Versed 1 mg IV Oxygen: 2 L/min via nasal cannula Brilinta 180 mg PO 11/26/2022 09:15:03 Benadryl 25 mg IV @ 11/26/2022 09:55:42 Heparin given IA 11/26/2022 09:06:26 Heparin 6000 unit(s) IV 11/26/2022 09:17:27 Heparin 2000 unit(s) IV 11/26/2022 09:51:19 Verapamil 2.5mg, Ntg 100mcgs, 3000 units of Heparin given IA 11/26/2022 09:06:26 SUMMARY OF HEMODYNAMIC DATA Time AIR REST ECG 08:50:03 AO 117/83 (101) SA 09:07:10 AIR REST 09:23:36 Signed By Steven Watson MD On 11/26/2022 16:07:47 Signed By Steven Watson MD On 11/26/2022 09:23:26 Steven Watson MD
--- NOTE | 2022-11-26 09:59 | PCI.CARDCATH ---
PCI Cardiac Cath Report PCI Report: 1. Successful PCI successful PCI of proximal LAD 99% with primary stenting using drug-eluting stent 4 x 15 mm resolute Cubero Postdilated with 4.5 x 12 mm NC balloon and reduction of stenosis to 0% Maintenance of pre and post FRANKIE-3 flow 2. Placement of TR band to close the right radial artery arteriotomy site Consent; Risk and benefit of procedure explained detail to the patient agreed to proceed informed consent obtained Preprocedure diagnosis; 42-year-old patient with a newly diagnosed diabetes mellitus with significant elevated blood glucose on admission 5.6 Also having symptoms of left-sided chest pain ongoing for nearly 1 week radiating to the left arm With a clinical diagnosis of non-ST elevation UT and elevated cardiac biomarker high sensitive troponins. Echocardiogram showed evidence of mild anteroapical and septal hypokinesia with ejection fraction moderate in the range of around 45%. Also echocardiogram showed evidence of a bicuspid aortic valve. And on clinical exam he had evidence of systolic click and a low systolic murmur his aortic valve. Patient underwent cardiac catheterization by his primary supervisor leaf spring fabrication Dr. Watson Findings revealed the following Left main is normal angiographically bifurcating into LAD and left circumflex LAD proximal LAD 99% stenosis The diagonal branch proximal had around 50 to 60% Circumflex large with mild luminal irregularity RCA is large mid RCA had 40% stenosis. Interventional equipment and plan; 1. Access from the right radial artery 2. 6 [place] JL 4 guide 3. 0.014 180 cm run-through extra floppy straight guidewire 4. 4 x 15 mm drug-eluting stent resolute Cubero 5. 4.5 x 12 mm NC balloon Medication used in the [employer] 1. Patient was given Brilinta 180 mg in the [employer] Aspirin 81 3. Was given heparin ACT level acceptable. Procedure in detail; Under fluoroscopic guidance we will proceed with the guide catheter 6 [place] JL 4 advanced Haylee and cannulated the left main without difficulty Angiographic view of the left main obtained and lesion identified at the proximal to mid LAD subtotal 99% Proceed with the guide wire across the lesion Interview performed primary stenting using 4 x 50 mm drug-eluting stent and postdilated using 4.5 x 12 mm And achieve an excellent result with FRANKIE-3 flow to the LAD Following this all catheter removed Hemostasis maintained with manual pressure No complication in the [employer] Conclusion and recommendation 1. 42-year-old patient who presented with symptoms of chest pain with a clinical diagnosis of non-ST elevation UT Covid my wall motion abnormality in the anteroseptal with reduced EF around 45% and elevated cardiac biomarker Patient treated with medical therapy with heparin aspirin and statin Also echocardiographic evaluation showed evidence of a bicuspid aortic valve Patient had significant family history of CAD and family history of diabetes Father had diabetes mellitus. 2. Patient to continue on DAPT with Brilinta 90 mg twice daily in addition to low-dose aspirin for 1 year 3. We will start on high-dose statin 80 mg atorvastatin 3. I will defer to the medical team for control of his diabetes 4. We will start on LIBBY inhibitor lisinopril 10 mg as tolerated by the blood pressure 5. Patient will be scheduled for cardiac rehab program 6. Patient will follow up with the primary supervisor leaf spring [employer] Dr. Watson for continuation of cardiac care also to discuss further plan for long-term follow-up of bicuspid aortic valve. Nirmal Cunningham MD,FACC,[facility]
--- NOTE | 2022-11-26 10:15 | EKG12_ITS ---
Test Reason : POST FEE CLERK Blood Pressure : / mmHG Vent. Rate : 078 BPM Atrial Rate : 078 BPM P-R Int : 196 ms QRS Dur : 088 ms QT Int : 396 ms P-R-T Axes : 034 016 019 degrees QTc Int : 451 ms Normal sinus rhythm Normal ECG When compared with ECG of 26-NOV-2022 05:16, MANUAL COMPARISON REQUIRED, DATA IS UNCONFIRMED Confirmed by JEANNETTE FRANCOIS, TOMEKA ([id number]), newspaper or periodical editor JIN BAILEY ([id number]) on 11/29/2022 11:23:40 AM Referred By: LAURA Confirmed By:TOMEKA MACHADO MD
[2022-11-26] MEDS: 0.9% Normal Saline 1,000 ML 75 ML IV (10:40)
[2022-11-26 10:48] LABS: ACT Activated Clotting Time 251 sec (74-137)
--- NOTE | 2022-11-26 12:11 | PCM.PN.HOSP ---
Reason for Visit Reason for Visit: Diagnoses Type 2 diabetes mellitus without complications (11/25/22) Acute ischemic heart disease, unspecified (11/25/22) Follow-up for non-STEMI. Bicuspid aortic valve. Subjective Subjective Did not have any chest pain or shortness of breath. Objective Data Objective Data Vital Signs: Vital Signs Temp Pulse Resp BP Pulse Ox O2 Del Method 97.8 F 82 18 101/73 98 Room Air 11/26/22 10:30 11/26/22 11:40 11/26/22 11:40 11/26/22 11:40 11/26/22 11:40 11/26/22 11:40 Oxygen Delivery Method Room Air Weight: 180 lb Body Mass Index (BMI) 25.8 Intake & Output: Intake and Output for Last 24 Hours 11/24/22 11/25/22 11/26/22 23:59 23:59 23:59 Intake Total 2635 / 2635 1207.5 / 1207.5 Balance 2635 / 2635 1207.5 / 1207.5 Lab / Micro Data Result Diagrams: 11/26/22 06:00 11/26/22 06:00 Labs: Laboratory Results - last 24 hr 11/25/22 12:50: WBC 7.8, RBC 5.69, Hgb 17.5 H, Hct 48.2, MCV 84.7, MCH 30.8, MCHC 36.3 H, RDW Std Deviation 37.9, RDW Coeff of Julianne 12.4, Plt Count 286, MPV 11.6, Immature Gran % (Auto) 0.300, Neut % (Auto) 79.9 H, Lymph % (Auto) 14.2 L, [place] % (Auto) 4.3, Eos % (Auto) 1.0, Baso % (Auto) 0.3, Absolute Neuts (auto) 6.3, Absolute Lymphs (auto) 1.11, Nucleated RBC % 0 11/25/22 12:50: Sodium 132 L, Potassium 4.0, Chloride 97 L, Carbon Dioxide 26.0, Anion Gap 9, BUN 14, Creatinine 1.16, Estim Creat Clear Calc 86.53, Est GFR (MDRD) Af Amer 89, Est GFR (MDRD) Non-Af 74, BUN/Creatinine Ratio 12.1, Glucose 506 H*, Calcium 9.2, Troponin I High Sens 96 H 05/18/23 13:54: POC Glucose 476 H* 11/25/22 14:01: D-Dimer Quant (PE/DVT) < 0.27 L 11/25/22 14:01: Acetone Level NEGATIVE 11/25/22 14:01: Troponin I High Sens 91 H 11/25/22 14:01: Phosphorus 3.3, Magnesium 2.1 11/25/22 14:01: APTT 26.2 11/25/22 15:00: Urine Color Yellow, Urine Clarity Clear, Urine pH 7.0, Ur Specific [place] 1.010, Urine Protein Negative, Urine Glucose (UA) 1000 H, Urine Ketones 15 H, Urine Occult Blood Negative, Urine Nitrite Negative, Urine Bilirubin Negative, Urine Urobilinogen Normal, Ur Leukocyte Esterase Negative, Urine RBC 0 SEEN, Urine WBC 0 SEEN, Ur Squamous Epith Cells 0-5 SEEN, Urine Bacteria 0 SEEN, Urine Mucus 0 SEEN 11/25/22 19:05: Troponin I High Sens 125 H* 11/25/22 22:23: POC Glucose 322 H 11/26/22 00:15: APTT 55.8 H 11/26/22 06:00: WBC 6.5, RBC 4.69, Hgb 14.1, Hct 41.3, MCV 88.1, MCH 30.1, MCHC 34.1 D, RDW Std Deviation 38.5, RDW Coeff of Julianne 12.1, Plt Count 215, MPV 11.5, Immature Gran % (Auto) 0.300, Neut % (Auto) 54.5, Lymph % (Auto) 35.0, [place] % (Auto) 6.7, Eos % (Auto) 2.9, Baso % (Auto) 0.6, Absolute Neuts (auto) 3.6, Absolute Lymphs (auto) 2.29, Nucleated RBC % 0 11/26/22 06:00: Sodium 136, Potassium 3.5, Chloride 105, Carbon Dioxide 26.0, Anion Gap 5, BUN 10, Creatinine 0.77, Estim Creat Clear Calc 130.36, Est GFR (MDRD) Af Amer 143, Est GFR (MDRD) Non-Af 118, BUN/Creatinine Ratio 13.0, Glucose 284 H, Calcium 7.7 L, Triglycerides 317 H, Cholesterol 146, LDL Cholesterol 62, VLDL Cholesterol 63 H, HDL Cholesterol 21 L, TSH 2.04 11/26/22 06:00: Hemoglobin A1c 12.2 H 11/26/22 06:00: APTT 60.4 H 11/26/22 06:25: POC Glucose 280 H 11/26/22 09:50: Activated Clotting Time 251 H Radiography Diagnostic Testing: Radiology Impression Chest X-Ray 11/25/22 12:41 IMPRESSION: Normal x-ray examination of the chest. Electronically Signed: Elder Arias MD at 14:02 EDT , Echocardiogram 11/25/22 18:04 Interpretation Summary Moderate segmental systolic dysfunction (see wall motion). Normal LV size. The estimated ejection fraction is 35 %. Bicuspid aortic valve. Mild (1+) eccentric aortic valve insufficiency. Mild (1+) eccentric mitral valve insufficiency. Contrast injection was performed. Ordering Physician: Nirmal Cunninhgam Referring Physician: Shan Hunt Performed By: Don Maier RCS Rhythm Strip Rhythm Strip: Sinus Tach Rate: 105 Ectopy: None Physical Exam Narrative Seen and examined. Patient had echo and cardiac cath in the morning. Non-STEMI. Right radial artery access. General: Alert, Oriented x3, Cooperative HEENT: Atraumatic, PERRLA, EOMI, Normocephalic Oral: Oral mucosa dry. No Gingival or Mucosal Lesions/ Ulcerations Neck: Supple, No JVD, Negative Carotid Bruits Lungs: Air entry diminished in bilateral lung bases. No crepitation/rhonchi Cardiovascular: Normal sinus rhythm, Normal S1, Normal S2, ejection systolic murmur with radiation to carotids. Abdomen: Bowel Sounds Present, Soft, Non Tender, Non-Distended : No renal angle tenderness. No suprapubic tenderness. Extremities: No hematoma or bruise over the right radial artery access site. No edema, Capillary Refill Less than 3 Seconds Skin: No rashes, No breakdown Musculoskeletal: No Tenderness to Palpation of Joints or Extremities Neurological: Cranial nerves II-XII grossly intact, DTR 2+/4 and Symmetrical, Neuro grossly intact Psych/Mental Status: Normal Affect, Appropriate. Assessment & Plan Assessment/Plan (1) ACS (acute coronary syndrome): (2) Diabetes mellitus, new onset: PLAN: Plan This is 42-year-old gentleman came to ED for atypical chest pain along with high blood pressure and hyperglycemia. 1. Non-STEMI/acute coronary artery syndrome with chronic bicuspid aortic valve: Patient is being admitted in PCU on telemetry. First troponin 96-second troponin 91. D-dimer negative. 2 Twelve-lead EKG individually reviewed and does not show acute significant ST-T changes suggestive of acute ischemia.FRANKIE risk score 3 with 3 coronary artery disease risk factors, angina and positive cardiac marker. Street Photographer is consulted. Patient on aspirin, 1 loading therapeutic dose enoxaparin given in ED, carvedilol and high intensity atorvastatin started. Patient was started on IV heparin drip. Nitro sublingual as needed for chest pain. Serum magnesium and phosphorus level are normal. 11/26: Third troponin 125. Patient was seen by insurance auditor yesterday and decided for cardiac cath because of non-STEMI. Patient had cardiac cath in the morning and found to have 99% proximal LAD, D1 proximal 60% stenosis. Mid RCA 40% stenosis. Successful PCI was done. 2D echo was done reported EF 35%, bicuspid aortic valve mild AI and mild eccentric MR but I hear aortic stenosis murmur too and patient has history of aortic stenosis. Fasting lipid profile profile shows TG 317, LDL 62 HDL 21. On high intensity statin. TSH normal. 2. New onset diabetes mellitus type 2: Glucose was 506 in BMP. Fingerstick 476. Patient also has 2-month history of polydipsia, polyuria and polyphagia. In conclusion it seems patient has type 2 diabetes mellitus. Accu-Chek before meals and cover with Humalog sliding and started on long-acting insulin. 11/26: A1c 12.2%. Glucose on Accu-Chek 280, 284. Patient on long-acting and started on prandial insulin. 3. Uncontrolled blood pressure, possible undiagnosed hypertension and dyslipidemia: Patient does not have diagnosis of hypertension but blood pressure high in the 170s systolic in 150s. Started on lisinopril 10 mg daily. 11/26: Blood pressure today is on lower side. Continue lisinopril with holding dose. Patient will need home BP monitoring or ambulatory BP monitoring to diagnose hypertension. 4. Strong family history of coronary artery disease father had CABG at the age of 39 and mother has stents. 5. VTE prophylaxis: On therapeutic dose of Lovenox. Laboratory Results 11/25/22 19:05: Troponin I High Sens 125 H* 11/25/22 22:23: POC Glucose 322 H 11/26/22 00:15: APTT 55.8 H 11/26/22 06:00: WBC 6.5, RBC 4.69, Hgb 14.1, Hct 41.3, MCV 88.1, MCH 30.1, MCHC 34.1 D, RDW Std Deviation 38.5, RDW Coeff of Julianne 12.1, Plt Count 215, MPV 11.5, Immature Gran % (Auto) 0.300, Neut % (Auto) 54.5, Lymph % (Auto) 35.0, [place] % (Auto) 6.7, Eos % (Auto) 2.9, Baso % (Auto) 0.6, Absolute Neuts (auto) 3.6, Absolute Lymphs (auto) 2.29, Nucleated RBC % 0 11/26/22 06:00: Sodium 136, Potassium 3.5, Chloride 105, Carbon Dioxide 26.0, Anion Gap 5, BUN 10, Creatinine 0.77, Estim Creat Clear Calc 130.36, Est GFR (MDRD) Af Amer 143, Est GFR (MDRD) Non-Af 118, BUN/Creatinine Ratio 13.0, Glucose 284 H, Calcium 7.7 L, Triglycerides 317 H, Cholesterol 146, LDL Cholesterol 62, VLDL Cholesterol 63 H, HDL Cholesterol 21 L, TSH 2.04 11/26/22 06:00: Hemoglobin A1c 12.2 H 11/26/22 06:00: APTT 60.4 H 11/26/22 06:25: POC Glucose 280 H 11/26/22 09:50: Activated Clotting Time 251 H Charges/Coding Visit Charges Inpatient E&M: 60250 Subs Hosp L2
[2022-11-26 12:41] LABS: Bedside Glucose 220 mg/dL (74-106)
--- NOTE | 2022-11-26 12:49 | CRPHASE1 ---
Patient Communication PHII Cardiac Rehab Discussed with Patient:: Yes Guide to Cardiac Rehab Given to Patient:: Yes Cardiac Rehab Facility Choice List Given to Patient:: Yes Choice Program [facility] CR PHII:: Communication Given to CR Choice Program Other:: Communication Given to CR Silk Blocker:: Nirmal Cunningham Cardiac Rehabilitation Info Cardiac Rehabilitation Program Information: Cardiac Rehab The cardiac rehab team at [facility] consists of highly skilled exercise physiologists, nurses, respiratory therapists and physicians working together with you. Our purpose is to help you have a full recovery and achieve the goals you set for yourself. Over the years many of our patients have returned to activities they assumed they would never do again! We can help restore your confidence and motivation to make lifestyle changes that can have a significant impact on your health and quality of life! We can help answer questions and concerns you may have about exercise, lifestyle, medications, diet, stress and anxiety which are common following a hospitalization. WE monitor ECG and vital signs during exercise and discuss your progress with you and report to your physician(s). Cardiac Rehab is proven to help reduce readmissions, improve functional capacity and lower recurrence of problems with your heart. Our Cardiac Rehab program is Certified by the [place] [employer]-Vascular and Pulmonary [employer] (AACVPR) and Accredited by the [employer] through our [facility]. You can contact us at . We invite you to call us with your questions or to get started in our program. If you have other questions or concerns be sure to ask your physician/provider during your follow-up visit. WE look forward to seeing you!
--- NOTE | 2022-11-26 12:50 | CRPH1.INSTRU ---
General Education CAD and cardiac anatomy and function:: Patient communicates acknowledgment Explanation of diagnoses and procedures:: Patient communicates acknowledgment Sign/Symptoms of UT:: Patient communicates acknowledgment Antiplatelet therapy: Patient communicates acknowledgment Proper use of NTG-SL: Patient communicates acknowledgment Emergency procedures and activation of EMS: Patient communicates acknowledgment Compliance of all prescribed medications: Patient communicates acknowledgment Smoking Patient Nicotine/Smoking Risk Factors Are:: Non-smoker Recommendations Include:: Second-hand smoke recommendation Nicotine/Smoking Response Code:: Patient communicates acknowledgment Dyslipidemia Recommendations Include:: Lipid profile not available Dyslipidemia Response Code:: Patient communicates acknowledgment Overweight/Obesity Patient Overweight/Obesity Risk Factors Are:: BMI Normal [18-25 & < 65 years old] Recommendations Include:: Weight loss of 5-10%, Reduced calorie diet, Exercise 5-7 times/week Overweight/Obesity:: Patient communicates acknowledgment Hypertension Recommendations Include:: Maintain BP <130/85, BP <130/80 if diabetic, DASH dietary guidelines, Decrease/maintain normal body weight, Moderation of ETOH Hypertension:: Patient communicates acknowledgment Heart Disease Patient Heart Disease Risk Factors Are:: Family history of heart disease < 65 years old Recommendations Include:: Educated family members of their risk, Educated family members of importance of prevention of heart disease Heart Disease Response Code:: Patient communicates acknowledgment Diabetes Patient Diabetes Risk Factors Are:: No documented hx of diabetes, Elevated blood sugars Recommendations Include:: Maintain fasting blood sugars 70-110 md/dL, Maintain HgbA1c of 6% or less, Monitor blood sugar as prescribed, Diabetic dietary guidelines, Decrease/maintain body weight Diabetes:: Patient communicates acknowledgment Metabolic Syndrome Patient Metabolic Syndrome Risk Factors Are [3 of 5]:: Fasting blood sugar > 100 mg/dL, Waist circumference > 35 [female] or 40 [male], High triglyceride >150, Hypertension, Low HDL <40 [male] or < 50 [female] Recommendations Include:: Does not meet criteria Metabolic Syndrome Response Code:: Patient communicates acknowledgment Sedentary Patient Sedentary Risk Factors Are:: Lack of regular exercise Recommendations Include:: Aerobic exercise 5-7 times/week for 20-30 minutes continuously Sedentary Response Code:: Patient communicates acknowledgment Stress Patient Stress Risk Factors Are:: Patient denies stress as a risk factor Recommendations Include:: Identification of stressors, and assessment of coping skills, Stress management techniques Stress Response Code:: Patient communicates acknowledgment
--- NOTE | 2022-11-26 13:00 | CASEMGMT ---
LASHAY PEOPLES in to complete HUBER with patient. LASHAY PEOPLES explained HUBER form to patient, patient voiced understanding. Patient signed HUBER form and filed in chart. Patient provided with copy of signed HUBER form. Patient had no further questions or concerns at this time.
[2022-11-26] MEDS: Insulin Glargine-YFGN 100 UNIT/ML Pen 15 UNIT SC ×2 (13:39→22:05)
--- NOTE | 2022-11-26 15:30 | CASEMGMT ---
RN SHELTON Face to Face with patient for initial transition planning/care coordination assessment. RN CM introduced self and role at [facility]. Patient lying in bed, alert and oriented, family at bedside. Patient willing to participate in assessment and is able to answer all questions appropriately. Care providers, pharmacy, and demographics verified. Patient wishes to discharge home, denies need for home health at this time. Patient states he has no further needs or concerns at this time. CM to follow for discharge planning needs that may arise. PCP: Marilee Specialists: none Preferred Pharmacy: [facility] Insurance: [place] Prescription Benefit: yes Living Will/HPOA: yes, Isabela Mcgee LNOK: Living Arrangements: Patient lives with and children in a split level home. Patient is independent and able to ambulate the stairs at home. Transportation: self, DME/HHC: Patient denies DME in the home. No previous HHC Disposition Plan: Patient to discharge home with family support and follow-up plans in place. Isabela DUCKWORTH, RN, CM
[2022-11-26] MEDS: Acetaminophen 325 MG Tablet 650 MG PO ×2 (16:15→20:57)
[2022-11-26 17:50] LABS: Bedside Glucose 242 mg/dL (74-106)
[2022-11-26] MEDS: Insulin Lispro 100 UNIT/ML INSULN.PEN 10 UNIT SC (18:00)
[2022-11-26] MEDS: Atorvastatin Calcium 80 MG Tablet PO (20:58)
[2022-11-26 23:20] LABS: Bedside Glucose 205 mg/dL (74-106)
[2022-11-27 03:00] VITALS: BP 125/82; PULSE 72; RESP 15; TEMP 36.4; O2SAT 97
[2022-11-27 03:57] LABS: Hematocrit 38.7 % (40-54); Hemoglobin 13.8 g/dL (13.0-16.5); Mean Corp Hgb Conc 35.7 g/dL (32-36); Mean Platelet Vol. 11.1 fl (6.2-12.0); Platelet Count 197 K/mm3 (150-450); RBC Distribution Width CV 12.3 % (11.6-14.6); RBC Distribution Width SD 39.2 fl (35.1-43.9); Red Blood Count 4.45 M/mm3 (4.6-6.2); White Blood Count 6.7 K/mm3 (4.4-11.0)
[2022-11-27 04:48] LABS: AST(SGOT) 21 U/L (15-37); Alanine Aminotransfer ALT/SGPT 35 U/L (16-61); Alkaline Phosphatase 83 U/L (45-117); Anion Gap 5 (5-15); BUN 14 mg/dL (7-18); BUN/Creat Ratio 18.1 RATIO (10-20); Calcium,Total 8.1 mg/dL (8.5-10.1); Chloride 108 mmol/L (98-107); Creatinine, Serum 0.77 mg/dL (0.70-1.30); EST Glomerular Filtration Rate 117 mL/min (>60); Est Glom Filt Rate - Afr Amer 142 mL/min (>60); Estimated Creatinine Clearance 130.36 ml/min; Globulin 2.9 g/dL (2.2-4.2); Glucose 179 mg/dL (74-106); Potassium 3.4 mmol/L (3.5-5.1); Protein, Total 5.9 g/dL (6.4-8.2); Sodium Level 139 mmol/L (136-145)
[2022-11-27 07:56] VITALS: O2SAT 97
[2022-11-27 08:10] VITALS: BP 126/87; PULSE 77; RESP 18; TEMP 36.3; O2SAT 99
[2022-11-27] MEDS: Insulin Lispro 100 UNIT/ML INSULN.PEN SC ×2 (08:21→12:28)
[2022-11-27] MEDS: Insulin Lispro 100 UNIT/ML INSULN.PEN 10 UNIT SC ×2 (08:21→12:27)
[2022-11-27] MEDS: Carvedilol 12.5 MG Tablet PO (08:26)
[2022-11-27] MEDS: Aspirin E.C. 81 MG Tablet PO (08:26)
[2022-11-27] MEDS: Lisinopril 10 MG Tablet PO (08:27)
[2022-11-27] MEDS: Insulin Glargine-YFGN 100 UNIT/ML Pen 15 UNIT SC (08:28)
[2022-11-27 08:56] LABS: Bedside Glucose 208 mg/dL (74-106)
--- NOTE | 2022-11-27 09:54 | DCINST_ITS ---
Discharge Instructions Diet Discharge Diet: Low fat / Low cholesterol, 1800 Calorie Control Diet and 2000 mg Sodium Diet Activity Discharge Activity: Return to Normal Activity Weight Bearing Status: Weight bearing as tolerated Dressing / Incision Call your doctor if you observe: Fever of 101 or Higher, Coldness, Increased Pain, Numbness or Tingling, Change in Color, Inability to urinate, Inability to have a bowel movement, Shortness of breath, Dizziness, Fainting spells, Swelling in the ankles, Chest pain, Prolonged hiccupping, Increased palpitations (irregular heartbeat) and Calf discomfort Follow Up Care When: IN 2 WEEKS Test Results: Test results from this visit will be discussed in further detail at your follow- up appointment, if applicable. Discharge Plan Admission Admit Date/Time: 11/25/22 15:01 Primary Reason for Your Visit: NSTEMI, New onset DM-2 Attending Provider: Uri Navarrete Primary Care Provider: Shan Hunt Consulting Providers: Nirmal Cunningham Instructions Additional Instructions / Restrictions: Advised not to do heavy work pulling pushing lifting with the right hand for the next 2 days, today and tomorrow. Discharge Orders/Prescriptions Prescriptions: New aspirin 81 mg Tablet,Delayed Release (Dr/Ec) 81 mg PO DAILY@0800 30 Days Qty: 30 3RF atorvastatin 80 mg Tablet 80 mg PO QHS 30 Days Qty: 30 2RF carvedilol 12.5 mg Tablet 12.5 mg PO BID 30 Days Qty: 60 2RF Rx Instructions: Hold for heart less than 60 or systolic blood pressure less than 110 mmHg. insulin lispro [Humalog KwikPen Insulin] 100 unit/mL Insulin Pen See Protocol subcut ACHS Qty: 0 0RF Protocol: 4. Sliding Scale Insulin High-Med Dosing Condition: 150-199 mg/dl = 2 units Condition: 200-259 mg/dl = 4 units Condition: 260-324 mg/dl = 6 units Condition: 325-374 mg/dl = 8 units Condition: 375-409 mg/dl = 10 units Condition: 410-449 mg/dl = 11 units Condition: Greater than 449 call physician Protocol Text: - Use for Total Daily Dose of Insulin 56-80 units - Patient who are insulin resistant or septic HIGH MEDIUM DOSING ALGORITHM lisinopril 10 mg Tablet 10 mg PO DAILY 30 Days Qty: 30 0RF Rx Instructions: Hold for SBP less than 120 mmHg nitroglycerin 0.4 mg Tablet, Sublingual 0.4 mg sublingual Q5M PRN (Reason: Cardiac/Chest Pain) Qty: 30 0RF Brilinta 90 mg Tablet 90 mg PO BID 30 Days Qty: 60 2RF insulin lispro [Humalog KwikPen Insulin] 100 unit/mL insulin pen 10 unit subcut TIDAC Qty: 15 0RF Rx Instructions: Hold if glucose less than 130 mg/dl insulin glargine [Lantus Solostar U-100 Insulin] 100 unit/mL (3 mL) insulin pen 15 unit subcut BID Qty: 15 2RF Rx Instructions: Hold if glucose less than 130 mg/dl (DME) insulin syringe-needle U-100 1/2 mL 32 gauge x 5/16 syringe See Rx Instructions .ROUTE .MEDSUPPLY Qty: 100 0RF Rx Instructions: As directed metformin 500 mg tablet 500 mg PO BID 30 Days Qty: 60 1RF Rx Instructions: Start from 11/30/2022 Referrals / Follow Up: Steven Watson MD [Med Staff - Active Staff] - Within 1 Month Shan Hunt MD [Primary Care Provider] - Disposition Disposition (needs filled in before D/C Order can be placed): Home, Self Care
--- NOTE | 2022-11-27 09:54 | CASEMGMT ---
Addendum entered by Juan Jo 11/27/22 18:11: Call received back from pt's who trialed the pen needles on the pens they were given and they are compatible. LASHAY PEOPLES instructed her to f/u w/PCP for refills on pen needles once their current supply runs out.She voices appreciation for assistance provided. Addendum entered by Juan Jo 11/27/22 17:51: Call received from pt's , stating pharmacy is informing her that the Brilinta savings card (for commercial insurance) will not go through unless it is activated. LASHAY PEOPLES reviewed card and no instructions for activating the card was found. provided w/another Brilinta savings card to provide to pharmacy. She called back to this RN SHELTON and states that one went through successfully. also reports that the pen needles that were prescribed were for insulin vials, and so she purchased pen needles for insulin pens OTC. She states they were inexpensive, but inquiring if the ones [facility] gave her are compatible w/the insulin pen pt was prescribed, as the pharmacy was unable to verify this. informed that this RN CM is not certain of this. states will go home and trial the pen needles on the pen and will call this RN SHELTON back to inform her if they are compatible. Addendum entered by Juan Jo 11/27/22 14:08: Insulins glargine and lispro were e-scribed to [facility] pharmacy. Call to [facility]. Per pharmacist, insurance is denying to pay for these insulins. Call placed to [facility] @ . They stated basaglar is in formulary and fiasp is the only short-acting insulin in formulary. Call to [facility]. They have both in stock. Dr Navarrete notified and will e-scribe these to [facility]. Original Note: LASHAY PEOPLES NOTE: Pt to discharge home on Brilinta. LASHAY CM to room. Introduced self and role to pt and . Brilinta savings card provided to them and instructed on use. Questions answered. Pt and made aware to discuss other options w/gps navigation installer if refills are not affordable. states pt will need a glucometer. Script obtained from Dr Navarrete and provided to pt and . Pt states nursing has provided education on glucometer and insulin admin. Pt/ provided rac card for [facility]. Order placed for referral for Pt Link. Trang RAMIREZN RN CM
--- NOTE | 2022-11-27 10:00 | EKG12_ITS ---
Test Reason : AM EKG Blood Pressure : / mmHG Vent. Rate : 071 BPM Atrial Rate : 071 BPM P-R Int : 174 ms QRS Dur : 100 ms QT Int : 400 ms P-R-T Axes : 025 010 008 degrees QTc Int : 434 ms Normal sinus rhythm Normal ECG When compared with ECG of 26-NOV-2022 11:33, MANUAL COMPARISON REQUIRED, DATA IS UNCONFIRMED Confirmed by JEANNETTE FRANCOIS, TOMEKA ([id number]), legal editor JIN BAILEY ([id number]) on 11/30/2022 9:08:21 AM Referred By: Confirmed By:TOMEKA MACHADO MD
--- NOTE | 2022-11-27 10:36 | DS.PCM_ITS ---
Providers Date of Admission: 11/25/22 Date of Discharge: 11/27/22 Primary Care Physician: Dr. Shan Hunt MD Consultations 11/25/22 17:54 Consult: Cardiology Routine Consulting Provider: Nirmal Cunningham Reason for Consult: UNSTABLE ANGINA, NSTEMI? EMERGENT Consult: No MD Notified: Yes Date Notified: 11/25/22 Time Notified: 17:54 Method of Notification: Verbal Reason For Visit: ATYPICAL CHEST PAIN Diagnosis Discharge Diagnosis (1) ACS (acute coronary syndrome): Status: Acute Code(s): I24.9 - Acute ischemic heart disease, unspecified (2) Diabetes mellitus, new onset: Status: Acute Code(s): E11.9 - Type 2 diabetes mellitus without complications Plan This is 42-year-old gentleman came to ED for atypical chest pain along with high blood pressure and hyperglycemia. 1. Non-STEMI/acute coronary artery syndrome with chronic bicuspid aortic valve: Patient is being admitted in PCU on telemetry. First troponin 96-second troponin 91. D-dimer negative. 2 Twelve-lead EKG individually reviewed and does not show acute significant ST-T changes suggestive of acute ischemia.FRANKIE risk score 3 with 3 coronary artery disease risk factors, angina and positive cardiac marker. In Service Coordinator is consulted. Patient on aspirin, 1 loading therapeutic dose enoxaparin given in ED, carvedilol and high intensity atorvastatin started. Patient was started on IV heparin drip. Nitro sublingual as needed for chest pain. Serum magnesium and phosphorus level are normal. 11/26: Third troponin 125. Patient was seen by bessemer converter operator yesterday and decided for cardiac cath because of non-STEMI. Patient had cardiac cath in the morning and found to have 99% proximal LAD, D1 proximal 60% stenosis. Mid RCA 40% stenosis. Successful PCI was done. 2D echo was done reported EF 35%, bicuspid aortic valve mild AI and mild eccentric MR but I hear aortic stenosis murmur too and patient has history of aortic stenosis. Fasting lipid profile profile shows TG 317, LDL 62 HDL 21. On high intensity statin. TSH normal. 11/27: No further chest pain. UGS, side effects and adverse effects of medications discussed with patient, his and mother near the bedside. Lory ent will be on aspirin, Brilinta, lisinopril, carvedilol and high intensity statin. Prescriptions were given for the same. 2. New onset diabetes mellitus type 2: Glucose was 506 in BMP. Fingerstick 476. Patient also has 2-month history of polydipsia, polyuria and polyphagia. In conclusion it seems patient has type 2 diabetes mellitus. Accu-Chek before meals and cover with Humalog sliding and started on long-acting insulin. 11/26: A1c 12.2%. Glucose on Accu-Chek 280, 284. Patient on long-acting and started on prandial insulin. 11/27: Prescription given for metformin, Humalog and Lantus insulin. Advised Accu-Cheks before meals and at bedtime. Metformin to start from 11/30/2022. 3. Uncontrolled blood pressure, possible undiagnosed hypertension and dyslipidemia: Patient does not have diagnosis of hypertension but blood pressure high in the 170s systolic in 150s. Started on lisinopril 10 mg daily. 11/26: Blood pressure today is on lower side. Continue lisinopril with holding dose. Patient will need home BP monitoring or ambulatory BP monitoring to diagnose hypertension. 11/27: Blood pressure is normal. 4. Strong family history of coronary artery disease father had CABG at the age of 39 and mother has stents. 5. VTE prophylaxis: On therapeutic dose of Lovenox. Discharge medication reconciliation done. Discharge follow-up instructions completed. Discharge process discussed with the patient and all questions were answered to patient's satisfaction. Discharged home. Total time spent, exact 35 minutes on discharge meds reconciliation, examination, coordination of care with nurses and ancillary staff, review of imaging and blood test and discussion with the patient on follow-up instructions. Medications at Discharge Home Medications aspirin 81 mg tablet,delayed release 81 mg PO DAILY@0800 30 days #30 tabs 11/27/22 atorvastatin 80 mg tablet 80 mg PO QHS 30 days #30 tabs 11/27/22 carvedilol 12.5 mg tablet 12.5 mg PO BID 30 days #60 tabs 11/27/22 insulin glargine 100 unit/mL (3 mL) subcutaneous pen (Lantus Solostar U-100 Insulin) 15 unit (0.15 mL) subcut BID #15 mL 11/27/22 insulin lispro 100 unit/mL subcutaneous pen (Humalog KwikPen (U-100) Insulin) 10 unit (0.1 mL) subcut TIDAC #15 mL 11/27/22 insulin lispro 100 unit/mL subcutaneous pen (Humalog KwikPen (U-100) Insulin) See Protocol subcut ACHS #0 mL 11/27/22 insulin syringe-needle U-100 1/2 mL 32 gauge x 5/16 #100 ea 11/27/22 lisinopril 10 mg tablet 10 mg PO DAILY 30 days #30 tabs 11/27/22 metformin 500 mg tablet 500 mg PO BID 30 days #60 tabs 11/27/22 nitroglycerin 0.4 mg sublingual tablet 0.4 mg sublingual Q5M PRN Cardiac/Chest Pain #30 tabs 11/27/22 ticagrelor 90 mg tablet (Brilinta) 90 mg PO BID 30 days #60 tabs 11/27/22 Physical Exam Narrative Seen and examined. No acute issue. Patient's diagnosis, new onset diagnosis of non-STEMI, natural course, complications and medications discussed in detail. Physical exam General: Alert, Oriented x3, Cooperative HEENT: Atraumatic, PERRLA, EOMI, Normocephalic Oral: Oral mucosa dry. No Gingival or Mucosal Lesions/ Ulcerations Neck: Supple, No JVD, Negative Carotid Bruits Lungs: Air entry diminished in bilateral lung bases. No crepitation/rhonchi Cardiovascular: Normal sinus rhythm, Normal S1, Normal S2, ejection systolic murmur with radiation to carotids. Abdomen: Bowel Sounds Present, Soft, Non Tender, Non-Distended : No renal angle tenderness. No suprapubic tenderness. Extremities: No hematoma or bruise over the right radial artery access site. No edema, Capillary Refill Less than 3 Seconds Skin: No rashes, No breakdown Musculoskeletal: No Tenderness to Palpation of Joints or Extremities Neurological: Cranial nerves II-XII grossly intact, DTR 2+/4 and Symmetrical, Neuro grossly intact Psych/Mental Status: Normal Affect, Appropriate. Weight / BMI Weight Weight: 180 lb Body Mass Index (BMI) 25.8 ABG / Lab / Microbiology Data Result Diagrams: 11/27/22 03:42 11/27/22 03:42 Laboratory: Laboratory Results - last 24 hr 11/26/22 09:50: Activated Clotting Time 251 H 11/26/22 11:43: POC Glucose 220 H 11/26/22 16:19: POC Glucose 242 H 11/26/22 22:04: POC Glucose 205 H 11/27/22 03:42: WBC 6.7, RBC 4.45 L, Hgb 13.8, Hct 38.7 L, MCV 87.0, MCH 31.0, MCHC 35.7, RDW Std Deviation 39.2, RDW Coeff of Julianne 12.3, Plt Count 197, MPV 11.1 11/27/22 03:42: Sodium 139, Potassium 3.4 L, Chloride 108 H, Carbon Dioxide 26.0, Anion Gap 5, BUN 14, Creatinine 0.77, Estim Creat Clear Calc 130.36, Est GFR (MDRD) Af Amer 142, Est GFR (MDRD) Non-Af 117, BUN/Creatinine Ratio 18.1, Glucose 179 H, Calcium 8.1 L, Total Bilirubin 0.50, AST 21, ALT 35, Alkaline Phosphatase 83, Total Protein 5.9 L, Albumin 3.0 L, Globulin 2.9, Albumin/Globulin Ratio 1.0 11/27/22 08:05: POC Glucose 208 H D/C Instructions Discharge Diet: Low fat / Low cholesterol, 1800 Calorie Control Diet and 2000 mg Sodium Diet Weight Bearing Status: Weight bearing as tolerated Call your doctor if you observe: Fever of 101 or Higher, Coldness, Increased Pain, Numbness or Tingling, Change in Color, Inability to urinate, Inability to have a bowel movement, Shortness of breath, Dizziness, Fainting spells, Swelling in the ankles, Chest pain, Prolonged hiccupping, Increased palpitations (irregular heartbeat) and Calf discomfort When: IN 2 WEEKS Meaningful Use Info Meaningful Use Diagnoses (Choose all that apply): AMI AMI/Post PCI/Angioplasty Aspirin given w/in 24hrs of arrival?: Yes ASA at discharge?: Yes Statins at discharge?: Yes Claudio/ARB at discharge?: Yes Beta Mercedes at discharge?: Yes Done w/ Acute [place] measure.: Yes Discharge Plan Admission Admit Date/Time: 11/25/22 15:01 Primary Reason for Your Visit: NSTEMI, New onset DM-2 Attending Provider: Uri Navarrete Primary Care Provider: Shan Hunt Consulting Providers: Nirmal Cunningham Instructions Additional Instructions / Restrictions: Advised not to do heavy work pulling pushing lifting with the right hand for the next 2 days, today and tomorrow. Discharge Orders/Prescriptions Prescriptions: New aspirin 81 mg Tablet,Delayed Release (Dr/Ec) 81 mg PO DAILY@0800 30 Days Qty: 30 3RF atorvastatin 80 mg Tablet 80 mg PO QHS 30 Days Qty: 30 2RF carvedilol 12.5 mg Tablet 12.5 mg PO BID 30 Days Qty: 60 2RF Rx Instructions: Hold for heart less than 60 or systolic blood pressure less than 110 mmHg. insulin lispro [Humalog KwikPen Insulin] 100 unit/mL Insulin Pen See Protocol subcut ACHS Qty: 0 0RF Protocol: 4. Sliding Scale Insulin High-Med Dosing Condition: 150-199 mg/dl = 2 units Condition: 200-259 mg/dl = 4 units Condition: 260-324 mg/dl = 6 units Condition: 325-374 mg/dl = 8 units Condition: 375-409 mg/dl = 10 units Condition: 410-449 mg/dl = 11 units Condition: Greater than 449 call physician Protocol Text: - Use for Total Daily Dose of Insulin 56-80 units - Patient who are insulin resistant or septic HIGH MEDIUM DOSING ALGORITHM lisinopril 10 mg Tablet 10 mg PO DAILY 30 Days Qty: 30 0RF Rx Instructions: Hold for SBP less than 120 mmHg nitroglycerin 0.4 mg Tablet, Sublingual 0.4 mg sublingual Q5M PRN (Reason: Cardiac/Chest Pain) Qty: 30 0RF Brilinta 90 mg Tablet 90 mg PO BID 30 Days Qty: 60 2RF insulin lispro [Humalog KwikPen Insulin] 100 unit/mL insulin pen 10 unit subcut TIDAC Qty: 15 0RF Rx Instructions: Hold if glucose less than 130 mg/dl insulin glargine [Lantus Solostar U-100 Insulin] 100 unit/mL (3 mL) insulin pen 15 unit subcut BID Qty: 15 2RF Rx Instructions: Hold if glucose less than 130 mg/dl (DME) insulin syringe-needle U-100 1/2 mL 32 gauge x 5/16 syringe See Rx Instructions .ROUTE .MEDSUPPLY Qty: 100 0RF Rx Instructions: As directed metformin 500 mg tablet 500 mg PO BID 30 Days Qty: 60 1RF Rx Instructions: Start from 11/30/2022 Referrals / Follow Up: Steven Watson MD [Med Staff - Active Staff] - Within 1 Month Shan Hunt MD [Primary Care Provider] - Disposition Disposition (needs filled in before D/C Order can be placed): Home, Self Care Charges/Coding Visit Charges Inpatient E&M: 59692 Disch Hosp >30min
[2022-11-27 11:10] VITALS: BP 126/87; PULSE 77; RESP 18; TEMP 36.3; O2SAT 99
[2022-11-27 13:00] LABS: Bedside Glucose 204 mg/dL (74-106)
[2022-11-27] MEDS: Acetaminophen 325 MG Tablet 650 MG PO (13:11)
== END 2022-11-27 14:38 | disposition home or self-care (01) | DRG 247 ==
LOC: ED 14:22 → PCU 15:12
PROVIDERS: Internal Medicine Interventional Cardiology; Physician Assistant; Admitting Provider Internal Medicine; Emergency Provider Emergency Medicine; PCP Family Medicine; Visit Provider Internal Medicine
DX: I21.4 Non-ST elevation (NSTEMI) myocardial infarction (principal); Q23.1 Congenital insufficiency of aortic valve; I70.0 Atherosclerosis of aorta; I20.0 Unstable angina; E11.65 Type 2 diabetes mellitus with hyperglycemia; Z79.4 Long term (current) use of insulin; E78.5 Hyperlipidemia, unspecified; R03.0 Elevated blood-pressure reading, without diagnosis of hypertension; Z79.02 Long term (current) use of antithrombotics/antiplatelets; Z79.82 Long term (current) use of aspirin; Z79.84 Long term (current) use of oral hypoglycemic drugs; Z79.899 Other long term (current) drug therapy; Z82.49 Family history of ischemic heart disease and other diseases of the circulatory system; Z83.3 Family history of diabetes mellitus
CPT/HCPCS: 36415; 71045; 80048; 80053; 80061; 81001; 82009; 82962; 83036; 83735; 84100; 84443; 84484; 85025; 85027; 85347; 85379; 85730; 92928; 93005; 93306; 93454; 97802; 99152; 99153; 99285; J7030; J7040; Q9957; Q9967; A4216; C1725; C1769; C1874; C1887; C1894; C8929; C9600

== ENCOUNTER → 2023-01-03 | Outpatient (CLI) | payer BC, SELFPAY ==
--- NOTE | 2023-01-03 08:05 | PCM.CR.HP2 ---
CR - History & Physical - General Arrival date:: 01/03/23 Arrival time:: 08:00 Date of Referral:: 11/26/22 Date of CR Evaluation:: 01/03/23 Referring Physician: Dr. Watson Primary Diagnosis: PCI w/cornary stenting - History of Present Cardiac Event Onset Date: Enter Onset Date of cardiac illnesses in Comment field below Acute Myocardial Infarction within 12 months:: Yes - Non-STEMI PTCA or coronary stenting:: Yes - 11/29/2022 Type of Symptoms:: Heriditary in males in family. Father had same issues at age 39. [place] fluttering heart rate adn increase in fatigue. MUscle tiredness in left chaest and to arm pit. Interventions with present event:: Heart cath, Were there any complications?: None - Sleep Disorder Evaluation Hx of Sleep Apnea: No Do you snore loudly (louder than talking or can be heard through closed doors)?: Yes Do you often feel tired/ fatigued/ sleepy during daytime?: Yes - Feels better since the stent, but previously would wake up inthe morning like hadn't slept at all the night before. Has anyone observed you stop breathing during sleep?: No History of Hypertension (for STOP score): Yes STOP Results: Positive - Medications Home Medications: Ambulatory Orders Medication Instructions Recorded aspirin 81 mg tablet,delayed 81 mg PO DAILY@0800 30 days #30 11/27/22 release tabs insulin aspart 10 unit subcut TIDCM #15 mL 11/27/22 (niacinamide)(U-100) 100 unit/mL (3 mL) subcu cartridge (Fiasp Penfill U-100 Insulin) insulin glargine 100 unit/mL (3 15 unit (0.15 mL) subcut BID #15 mL 11/27/22 mL) subcutaneous pen (Basaglar KwikPen U-100 Insulin) insulin lispro 100 unit/mL See Protocol subcut ACHS #0 mL 11/27/22 subcutaneous pen (Humalog KwikPen (U-100) Insulin) insulin syringe-needle U-100 1/2 #100 ea 11/27/22 mL 32 gauge x 5/16 nitroglycerin 0.4 mg sublingual 0.4 mg sublingual Q5M PRN 11/27/22 tablet Cardiac/Chest Pain #30 tabs atorvastatin 80 mg tablet 80 mg PO QHS #90 tabs 12/22/22 carvedilol 12.5 mg tablet 12.5 mg PO BID #180 tabs 12/22/22 empagliflozin 10 mg tablet 10 mg PO DAILY 12/22/22 (Jardiance) ticagrelor 90 mg tablet (Brilinta) 90 mg PO BID #180 tabs 12/22/22 losartan 25 mg tablet 25 mg PO DAILY #90 tabs 12/29/22 - Allergies Allergies/Adverse Reactions: Allergies doxycycline Allergy (Verified 12/22/22 13:11) Swelling Advanced Directives - Advanced Directives Power of Electrochemist: No Living Will: Yes Advance Directives Information Provided: No Advance Directives on File: No DNR Order?:: No - MOLST See MOLST form: No Past Medical History - Covid-19 Screening Fever: No - last week experienced some chilling no fever though. Unexplained muscle aches: No Current respiratory symptoms: No Upper respiratory infections symptoms: No Gastro-intestinal symptoms: No [id number] symptoms: No Has tested positive for COVID-19 in last 30 days: No Date of testin01/03/23 - not vaccinated Had contact w/person w/symptoms or Covid-19 (+) last 14 days: No Has High Risk Exposures ID'd by Health dept/Inf Control team: No 65 years or older:: No Lives in Assisted Living facility:: No Has a chronic lung disease or moderate to severe asthma:: No Has a serious heart condition:: Yes Immunocompromised:: No Severely obese (Body Mass Index of 40 or higher):: No Diabetic:: Yes Has chronic kidney disease undergoing dialysis:: No Has liver disease:: No - Past Medical Illness Medical History: Past Medical History (Last Updated 01/03/23 @ 08:33 by Salvatore Smiley, MUSIC ENGRAVER, SUPERVISOR CON[employer]CT [employer], BS) Aortic stenosis I35.0 Atherosclerotic heart disease of [place] coronary artery without angina pectoris I25.10 Bicuspid aortic valve Q23.1 Cardiomyopathy, ischemic I25.5 Ejection fraction < 50% R94.30 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 Hernia K46.9 age 3 NSTEMI (non-ST elevated myocardial infarction) Onset Date: 11/26/22 I21.4 Pyloric ulcer K25.9 26 days old - Past Surgical History Surgical History: Past Surgical History (Last Reviewed 12/22/22 @ 13:26 by Lauryn MATTA, PA) Stented coronary artery Onset Date: 11/26/22 Z95.5 Proximal LAD 99% with primary stenting using drug-eluting stent 4 x 15 mm resolute [place] Social History - Smoking History Smoking Status: Never smoker Hx Tobacco Use: No Hx Smoking Exposure: No - Alcohol Use Alcohol Usage: Yes - none now, 3 days week beer or two - Substance Abuse Hx Substance Use: No - Occupation Occupation (List type of work in comments):: Employed Hours worked per day:: 8 - Hobbies, Recreation, Social Activities Hobbies: Other - spending time with kids Recreational Activities: I am able to engage in all my recreational activities Social Environment - Status Marital Status: - Current Living Arrangements Living Environment:: Spouse - Children How many children do you have?: 4 Do any of your children live nearby?: Yes - Safety Do you feel safe in your surroundings?: Yes - Assistance Do you need any assistance at home?: no Review of Systems - Review of Systems Hints: Right click = Denies (Slash). Left click = Reports ([place]) Review of Present Symptoms: Reports: Dizziness/Lightheadedness - sometimes when stand up, change in vision, Fatigue - feels like getting tired again earlier than like too be., Appetite - Normal, Appetite - Special Diet - Healthier Diet, Diabetic New Onset,, Sleep - Normal. Denies: Shortness of Breath at Rest, Shortness of Breath with Exertion, Angina, Heart Arrhythmia/Irregularities, Sexual Changes - Pain Is Patient Pain Free?: Yes Pain Location: none Pain Level: 0/10 Risk Factor Assessment - Vital Signs Temperature: 97.6 F Respiratory Rate: 12 Pulse Ox: 99 Blood Pressure: 122/78 Nailbeds:: pink - Pulse Pulse Rate: 69 Pulse Rhythm: Regular - Hypertension How long have you been treated?: right after the heart cath and procedure ( New Onset) Blood Pressure Sitting - Left Arm: 122/78 - Blood Cholesterol/Lipids Total Cholesterol (mg/dL) Goal = less than 200 mg/dL: 146 HDL Cholesterol (mg/dL) Goal = less than 40 mg/dL: 21 LDL Cholesterol (mg/dL) Goal = less than 70 mg/dL: 62 Triglycerides (mg/dL) Goal = less than 150 mg/dL: 317 - Diabetes Diabetic History: Type II - New Onset Diabetes, Medication Dependent, Insulin Dependent Nutrition Referral for Diabetes: Yes - Obesity Height: 5 ft 10 in Weight:: 177 lb Weight in Pounds: 177.0 lbs Weight Source: Estimated by Patient Body Mass Index (BMI): 25.4 Nutritional Referral for Obesity: No - Physical Inactivity Physical Inactivity: Physically demanding job - Risk Stratification Risk Guidelines: Lowest Risk: Risk Factor for Smoking, Risk Factor for Obesity, Risk Factor for Hypertension - 122/78, Risk Factor for Sedentary Lifestyle, Moderate Risk: Risk Factor for Dyslipidemia, Highest Risk: Risk Factor for Diabetes - glucose 179; A1c 12.2 Motivation - Motivation to Participate On a scale of 1 to 10, how prepared are you to commit to attending program?: 10 What do you see as barriers to successfully being able to complete the program?: MAybe conflicting with the work schedule What do you see as the benefits of succesfully completing the program? In other words, what do you hope to get out of participating in the program?: Understanding what capabilities are, learning good ahbits to change lifesty Are there issues you are dealing with that will interfere with completing the program?: No Do you have a spouse or signficant other, family or friends who will help support you to complete the program?: Yes
--- NOTE | 2023-01-03 08:05 | PCM.CR.ITP ---
Diagnosis - General Information Admitting Diagnosis: PCI w/coronary stenting Secondary Diagnosis: HTN, HLD, NonSTEMI, DM Type II Barriers to Learning: No Barriers Stage of change r/t lifestyle modifications:: Action Gave educational material for:: Treating Heart Disease, Emotions & Heart Disease, Stress Management & Relaxation, Sleep Disorders & Heart Disease, How The Heart Works, What it means to have Heart Disease, How Coronary Artery Disease is Diagnosed, Heart Procedures, What Heart Medications Do, Risk Factors & Modifications, Living an Active Life, Nutrition - Education/Goals Individual Counseling: Initial Assessment: Abnormal Cholesterol Levels, High Blood Pressure, Diabetes Cardiac Rehabilitation Goals: 1. Maintain the individual as the primary focus of care. 2. To improve the patient's quality of life. 3. Identification of cardiac risk factors and provide cardiac risk factor management. 4. Enhance the psychosocial status of the patient. 5. Reconditioning enough to allow the patient to resume customary activities. 6. Control symptoms of cardiac disease Personal Goals: Initial Assessment: Improve management of stress and emotions, Improve energy level, Participate in home exercise program, Improve knowledge of cardiac disease, Improve muscle strength and endurance, Control risk factors (learn risk factor modification) Scale for measuring improvement of personal goals: Enter appropriate number in Comments. 2 = Unchanged. 3 = Slightly Better. 4 = Moderate Improvement. 5 = Met my Goal - Diagnosis & Disease Process Outcomes/Goals: Pt IDs own risk factors & lifestyle modifications by Session 10, Verbalizes symptoms of angina & response by session 3., Pt independently manages Plan/Interventions: Assist Pt to ID & engage in lifestyle modification to reduce CVD risk, Instruct on individual risk factors, Review symptoms of angina & emergency actions, Review secondary diagnosis & identify educational needs. - Safety Referral to Physical Therapy: No Referral to [facility] Case Management: No Fall Risk Assessed:: Yes Assistive Devices:: None Exercise - Initial Assessment - Visit Date of Eval: 01/03/23 Session #:: 0 - Pre-cardiac rehab evaluation Mets: Pre-: >7 METS for 30 minutes by discharge Comments:: Cardiomyopathy with LVEF 35% - Physician Prescribed Exercise Modalities: Treadmill, Rower, Airdyne Frequency: 3x/week for 12 weeks [36 sessions] Intensity: 60-80% of age predicted maximum heart rate reserve Duration: 30 - 45 minutes Current METSs:: 4.0 Target Heart Rate:: 116-134 Resting Blood Pressure: 122/78 EKG Type: Normal Sinus Rhythm - Outcomes & Goals Goals:: Verbalizes understanding of THR, RPE & goal METS by session 6, Documents in home exercise log/reports 30 min aerobic 5 day/wk by DC, Demonstrates accurate pulse taking by DC - Intervention & Plan Exercise Program Goals: Instruct on personal THR & RPE, Instruct on MET level & personal MET goal, Show patient to take own pulse /validate performance until accurate, Instruct on home exercise - Physical Activity Home Exercise Physical Activity - Home Exercise: Safe Exercise, Warm-up, Self-monitoring, Cool-Down, Home Exercise > 30 min Daily, Sitting Time <3 hours/daily - Outcomes & Goals Outcomes/Goals: Demonstrates correct Warm-up/exercise Cool-Down (S3) if = 2.5 METs, Verbalizes symptoms of exercise intolerance by Session 3 (S3), Demonstrate safe equipment use (S3) & follows exercise prescrition (6) - Intervention & Plan Plan/Intervention: Instruct warm-up & cool-down if exercising at > 2 METs, Instruct on symptoms of exercise intolerance & actions to take, Instruct & monitor on saf, Assess intial functional capacity & safety risk Nutrition - Initial Assessment - Program Goals Nutrition Program Goals: LDL <100 optimal. 100 - 129 Near optimal. 130 - 159 Borderline High. 160 - 189 High. Total Cholesterol <200 desirable. 200 - 239 Borderline High. >/= 240 High. HDL < 40 Low >/=60 High. Triglycerides <150 desirable. <199 optimal. VlDL 5 - 40. HgbA1C <7%. BMI <25 Patient has diagnosis of Hyperlipidemia (ICD E78)?: Yes - Visit Date of Assessment:: 01/03/23 Session #:: 0 - Cholesterol/Lipids (Other Core Measures) Triglycerides (mg/dL): 317 Total Cholesterol (mg/dL): 146 LDL Cholesterol (mg/dL): 62 HDL Cholesterol (mg/dL): 21 Determine presence & major risk factors that modify LDL goal: Hypertension or hypertensive medication, Low HDL cholesterol <40 mg/dL*, Family history of premature CHD in Male < 55 years: female <65 yearsFa, Age men > 45 years; women >/= 55 years Outcomes/Goals: Pt IDs own risk factors & lifestyle modifications by Session 10, Verbalizes symptoms of angina & response by session 3., Pt independently manages Intervention/Plan: Instruct on personal lipid levels & lipid goals/NCEP guidelines, Instruct on cholesterol Referral to dietitian:: Yes - Medical Nutrition - Diabetes (Other Core Measures) Diabetes Type: Diagnosis Type II ICD-10 E11 Fasting blood glucose:: 179 Hgb A1C (4.2 - 6.3): 12.2 Insulin dependent injection/pump?: Yes Non-Insulin Dependent?: Yes Do you monitor your blood sugar at home?: Yes Referral to Diabetic Clinic:: Yes Outcomes/Goals:: Able to state symptoms of, Able to state, Able to state Intervention/Plan:: Instruct on, Refer to, Instruct on - Weight Mgt (Other Care) Not Applicable: Yes Height: 5 ft 10 in Weight:: 177 lb BMI: 25.4 Diagnosis Overweight/Obesity BMI> 30% ICD-10 E66: No Diagnosis High BMI/Morbid Obesity BMI> 35% ICD-10 Z68: No Outcomes/Goals: Pt sets, maintains & shows weight loss goal & trend during rehab Intervention/Plan: Instruct on ideal BMI & set weight loss goal w/patient - Healthy Eating Habits Will attend diet classes:: Yes Outcomes/Goals:: Consume diet rich in vegs,fruits,whole grain/high fiber,fish,lean meat, Limit sat/trans fats,cholesterol & added salts & sugars Intervention/Plan:: Assess current eating habits - Education Gave educational materials for:: Signs & symptoms of hypoglycemia, Signs & symptoms of hyperglycemia, Healthy eating Nutrition - 30-Day Assessment Nutrition - 60-Day Assessment Nutrition - 90-Day Assessment Nutrition - Final Assessment Core - Initial Assessment - Visit Date of Eval: 01/03/23 Session #:: 0 - Pre-cardiac Rehab Evaluation - Medication Compliance Preventative Medication(s):: Aspirin, Ticagrelor/P2Y12 inhibitor, Statin/lipid, Beta yesenia H/O mental health issues: depression, anxiety, or addiction?: No Doesn?t believe in the benefits of treatment?: No Believes medications are unnecessary or harmful?: No Has a concern about medication side effects?: No Expresses concern over the cost of medications?: No Outcomes/Goals: Verbalizes medications,desired effect & common side effects @ DC, Pt self-reports following medication regimen, Keeps card in wallet w/medications listed by DC Interventions/plans: Instruct on medication effects & side effects, Review medication list w/patient every two weeks, Instruct importance of taking meds as ordered & assist problem solving - Tobacco Use Tobacco Use: Non-smoker - Hypertension Hypertension Diagnosis:: Hypertension ICD-10 I10 Resting Blood Pressure:: 122/78 [place] [employer] Hypertension Guidelines: [place] [employer] Hypertension Guidelines. Normal BP Less than 120/80. Elevated BP 120/80. Hypertension Stage 1: BP 130-139/80-89. Hypertesnion Stage 2: BP 140 or higher/90 or higher. Hypertension Crisis: BP higher than 180/120 Outcomes/Goals: Able to verbalize/achieve optimal blood pressure <130/80, Incorporates diet changes & exercise for blood pressure control by DC Interventions/plan: Instruct on optimal blood pressure, hypertension & medications, Instruct on effects of sodium, alcohol, stress, exercise &hypertension - Tobacco Cessation Referral Smoking Cessation Referral:: No Individual Education/Counseling:: No Education Schedule Given:: Yes Core - 30-Day Assessment Core - 60-Day Assessment Core - 90 Day Assessment Core - Final Assessment Psychosocial - Initial Assess - VIsit Date of Eval: 01/03/23 Session #:: 0 - Pre-cardaic rehab evaluation Not Applicable: Yes History of previous Mental disease:: No - Psychosocial Test Tool Used:: Marybeth Wheretoget QOL Cardiac, PHQ-9 Questionnaire phq-9 Severity: Severity. 1-4 Minimal Depression. 5-9 Mild Depression. 10-14 Moderate Depression. 15-19 Moderately Sever Depression. 20-27 Severe Depression. Rule: - Referral to Behavioral Health PS - Interventions: Yes Attend Stress Management Classes, No Referral to Behavioral Health if PHQ-9 score >9:, No Referral to [facility], No Referral to Physician if PHQ-9 if score is 5-9: - Outcomes/Goals: See list Psychosocial Outcomes/Goals:: ID's personal stressors & 2 strategies to manage stress by discharge - Intervention/Plan: See List Interventions/Plan:: Assess stressors,coping strategies & signs of derpression on admission, Instruct/assist pt to develop coping & personal stress Mgt strategies, Instruct patient to recognize signs & symptoms of depression, Instruct patient to recog Psychosocial - 30-Day Assess Psychosocial - 60-Day Assess Psychosocial - 90-Day Assess Psychosocial - Final Assessmen Patient Health Questionnaire Initial Assessment 1. Little interest or pleasure in doing things: Not at all 2. Feeling down, depressed, or hopeless: Not at all 3. Trouble falling or staying asleep, or sleeping too much: Not at all 4. Feeling tired or having little energy: Several days 5. Poor appetite or overeating: Not at all 6. Feeling bad about yourself -- or that you are a failure or have let yourself or your family down: Not at all 7. Trouble concentrating on things, such as reading the newspaper or watching television: Not at all 8. Moving or speaking so slowly that other people could have noticed. Or the opposite - being so fidgety or restless that you have been moving around a lot more than usual: Not at all 9. Thoughts that you would be better off , or of hurting yourself in some way: Not at all How difficult have these problems made it for you to do your work, take care of things at home, or get along with other people?: Not difficult at all Total Score: 1 TANISHA-Q SV Test - Statements CAD is a disease of the arteries in the heart: False Examples of risk factors for heart disease: True Angina is chest pain or discomfort: True The benefits of resistance training include: True Eating more meat and dairy products: False Anti-platelet medications such as aspirin are important: True The only effective way to manage stress: False An exercise warm-up slowly increases heart rate: True Prepared, processed foods usually have high sodium: True Depression is common after a heart attack: I Don't Know The statin medications lower cholesterol: I Don't Know To control blood pressure, lower the amount of sodium: True If someone gets chest discomfort during walking: False Transfats are partially hydrogenated vegetable oils: I Don't Know Sleep apnea that is not treated increases the risk: False To control cholesterol, one should become a vegetarian: False Someone knows if he/she is exercising at the right level: I Don't Know Diabetes cannot be prevented with exercise & health eating: False Stress is a large risk for heart attack: True A diet that can help lower blood pressure is rich in: I Don't Know - Total Score Total Correct Responses: 15 Self-Efficacy Initial Assessment We would like to know how confident you are in doing certain activities. Please select your confidence level for:: Select your confidence level for the following using the scale 1-10 where 1 is not at all confident and 10 is totally confident. Your score is the average of all 6 responses. Fatigue: How confident are you that you can keep the fatigue caused by your disease from interfering with the things you want to do? Select Number: 7 Physical Discomfort or Pain: How confident are you that you can keep the physical discomfort or pain of your disease from interfering with the things you want to do? Select Number: 8 Emotional Distress: How confident are you that you can keep the emotional distress caused by your disease from interfering with the things you want to do? Select Number: 8 Other Symptoms or Health Problems: How confident are you that you can keep other symptoms or health problems from interfering with the things you want to do? Select Number: 5 Different Tasks and Activities: How confident are you that you can do the different tasks and activities needed to manage your health condition so as to reduce your need to see a doctor? Select Number: 8 Medication: How confident are you that you can do things other than just taking medication to reduce how much your illness affects your everyday life? Select Number: 10 Total Score:: 7 Nutrition Survey - Nutrition Survey Initial Have you lost >10 lbs over the past 2 months without trying?: No Are you following a special diet at home for diabetes, low fat, or low salt?: Yes Are you interested in meeting with a dietitian for help understanding your diet?: Yes Do you eat less than 3 meals a day?: No Do you eat fatty meats (flaherty, sausage, ribs, etc), fried foods, desserts, large amounts of salad dressings, margarine, butter, or cheese most days?: No Do you have food allergies? [Enter types in comment field]: No Do you eat in restaurants more than 3 times a week?: No Do you season food with salt, seasoning salt, or garlic salt?: No Do you used canned, boxed, frozen meals, or soups, seasoning packets?: Yes - Patient just learned he is a diabetic and is anxious to learn more about a diet to help him lower his A1c adn glucose levels. Total Score:: 3
[2023-01-03 08:41] VITALS: BP 122/78; PULSE 69; RESP 12; TEMP 36.4; O2SAT 99; BMI 25.4
[2023-01-03 09:06] VITALS: BP 122/78; BMI 25.4
== END | disposition home or self-care (01) ==
PROVIDERS: PCP Family Medicine; Referring Provider Internal Medicine Cardiovascular Disease; Visit Provider Internal Medicine Cardiovascular Disease
DX: I25.5 Ischemic cardiomyopathy (principal); E11.9 Type 2 diabetes mellitus without complications; E78.5 Hyperlipidemia, unspecified

== ENCOUNTER 2023-01-05 15:06 | Outpatient (RCR) | payer BC, SELFPAY ==
[2023-01-03 08:55] VITALS: BMI 25.4
== END 2023-01-07 23:59 ==
LOC: CR 15:06
PROVIDERS: PCP Family Medicine; Referring Provider Internal Medicine Cardiovascular Disease; Visit Provider Internal Medicine Cardiovascular Disease
DX: I21.4 Non-ST elevation (NSTEMI) myocardial infarction (principal); Z95.5 Presence of coronary angioplasty implant and graft; I25.10 Atherosclerotic heart disease of native coronary artery without angina pectoris; I24.9 Acute ischemic heart disease, unspecified
CPT/HCPCS: 93798

== ENCOUNTER 2023-02-07 15:45 | Outpatient (RCR) | payer BC, SELFPAY ==
[2023-01-03 09:06] VITALS: BMI 25.4
--- NOTE | 2023-02-02 11:34 | PCM.CR.ITP ---
Exercise - Initial Assessment Visit Session #:: 11 Nutrition - Initial Assessment Weight Mgt (Other Care) Height: 5 ft 10 in Weight:: 178 lb 8 oz BMI: 25.6 Psychosocial - Initial Assess Target Goals Target Goals Patient Health Questionnaire PHQ-9 Screening 30-Day Re-eval Assessment: 1. Little interest or pleasure in doing things: Not at all 2. Feeling down, depressed, or hopeless: Not at all 3. Trouble falling or staying asleep, or sleeping too much: Not at all 4. Feeling tired or having little energy: Several days 5. Poor appetite or overeating: Not at all 6. Feeling bad about yourself -- or that you are a failure or have let yourself or your family down: Not at all 7. Trouble concentrating on things, such as reading the newspaper or watching television: Not at all 8. Moving or speaking so slowly that other people could have noticed. Or the opposite - being so fidgety or restless that you have been moving around a lot more than usual: Not at all 9. Thoughts that you would be better off , or of hurting yourself in some way: Not at all How difficult have these problems made it for you to do your work, take care of things at home, or get along with other people?: Not difficult at all Total Score: 1 Self-Efficacy 6-Item Scale 30-Day Re-eval Assessment: We would like to know how confident you are in doing certain activities. Please select your confidence level for: Fatigue Select Number: 7 Physical Discomfort or Pain Select Number: 8 Emotional Distress Select Number: 8 Other Symptoms or Health Problems Select Number: 5 Different Tasks and Activities Select Number: 8 Medication Select Number: 10 Total Score:: 7 Nutrition Survey Nutrition Survey Instructions Scoring Instructions Exercise - 30-day Assessment Visit Date of Eval: 02/02/23 Session #:: 11 Physician Prescribed Exercise Modalities: Treadmill and Airdyne Frequency: 3x/week for 12 weeks [36 sessions] Intensity: 60-80% of age predicted maximum heart rate reserve Current METSs:: 6 Target Heart Rate:: 134-152 Current RPE:: 11-13 Maximum Excercise HR:: 139 Resting Blood Pressure: 100/78 Maximum Exercise Blood Pressure: 198/100 EKG Type: NSR to ST Outcomes & Goals Goals:: Verbalizes understanding of THR, RPE & goal METS by session 6, Documents in home exercise log/reports 30 min aerobic 5 day/wk by DC, Demonstrates accurate pulse taking by DC and Other additional outcome/goals: see below Intervention & Plan Exercise Program Goals: Instruct on personal THR & RPE, Instruct on MET level & personal MET goal, Show patient to take own pulse /validate performance until accurate, Instruct on home exercise and Other additional plan/int 30-day Reassessments 30 day Reassessments:: Progressing Reassessment Notes & Comments:: Pt's MET levels increased, THR explained Physical Activity Home Exercise Physical Activity - Home Exercise: Safe Exercise, Warm-up, Self-monitoring, Cool-Down, Home Exercise > 30 min Daily and Sitting Time <3 hours/daily Outcomes & Goals Outcomes/Goals: Demonstrates correct Warm-up/exercise Cool-Down (S3) if = 2.5 METs, Verbalizes symptoms of exercise intolerance by Session 3 (S3), Demonstrate safe equipment use (S3) & follows exercise prescrition (6) and Other: See below Intervention & Plan Plan/Intervention: Instruct warm-up & cool-down if exercising at > 2 METs, Instruct on symptoms of exercise intolerance & actions to take, Instruct & monitor on saf, Assess intial functional capacity & safety risk and Other See below 30-day Reassessments 30 day Reassessments:: Progressing Reassessment Notes & Comments:: cool down encouraged Nutrition - 30-Day Assessment Program Goals Nutrition Program Goals Patient has diagnosis of Hyperlipidemia (ICD E78)?: Yes Visit Date of Eval: 02/02/23 Session #:: 11 Cholesterol/Lipids (Other Core Measures) Determine presence & major risk factors that modify LDL goal: Hypertension or hypertensive medication, Low HDL cholesterol <40 mg/dL*, Family history of premature CHD in Male < 55 years: female <65 yearsFa and Age men > 45 years; women >/= 55 years Outcomes/Goals: Pt IDs own risk factors & lifestyle modifications by Session 10, Verbalizes symptoms of angina & response by session 3., Pt independently manages and Other Additional Outcomes/Goals: Intervention/Plan: Advocate for lipid panel cholesterol medication if applicable, Instruct on personal lipid levels & lipid goals/NCEP guidelines, Instruct on cholesterol and Other additional plan/int Referral to dietitian:: Yes (medical nutrition therapy) 30-day Reassessments:: Progressing Reassessment Notes & Comments:: referral to dietitian Diabetes (Other Core Measures) Diabetes Type: Diagnosis Type II ICD-10 E11 Fasting blood glucose:: 124 Insulin dependent injection/pump?: Yes Non-Insulin Dependent?: Yes Referral to Diabetic Clinic:: Yes Outcomes/Goals:: Able to state symptoms of, Able to state, Able to state and Other additional 30-day Reassessments:: Progressing Reassessment Notes & Comments:: Referral to dietitian Weight Mgt (Other Care) Height: 5 ft 10 in Weight:: 178 lb 8 oz BMI: 25.6 Diagnosis Overweight/Obesity BMI> 30% ICD-10 E66: No Diagnosis High BMI/Morbid Obesity BMI> 35% ICD-10 Z68: No Outcomes/Goals: Pt sets, maintains & shows weight loss goal & trend during rehab and Other additional outcomes/goals Intervention/Plan: Instruct on ideal BMI & set weight loss goal w/patient, Assist pt to ID & incorporate diet changes for weight loss by S9, Refer to Structured Weight Loss program as appropriate, Encourage goal of using 250-300dcal per session for weight loss and Other additional plan/interventions 30 day Reassessments:: Progressing Reassessment Notes & Comments:: referral to dietitian Healthy Eating Habits Will attend diet classes:: Yes Outcomes/Goals:: Consume diet rich in vegs,fruits,whole grain/high fiber,fish,lean meat, Limit sat/trans fats,cholesterol & added salts & sugars and Other additional outcome/goals: Intervention/Plan:: Assess current eating habits and Other Additional plan/interventions 30-day Reassessments:: Progressing Reassessment Notes & Comments:: referral to diettitian Education Gave educational materials for:: Signs & symptoms of hypoglycemia, Signs & symptoms of hyperglycemia, Relate diabetes to coronary artery disease and Healthy eating Nutrition - 60-Day Assessment Weight Mgt (Other Care) Height: 5 ft 10 in Weight:: 178 lb 8 oz BMI: 25.6 Core - 30-Day Assessment Visit Date of Eval: 02/02/23 Session #:: 11 Medication Compliance Preventative Medication(s):: Aspirin, Ticagrelor/P2Y12 inhibitor, Statin/lipid and Beta yesenia H/O mental health issues: depression, anxiety, or addiction?: No Doesn?t believe in the benefits of treatment?: No Believes medications are unnecessary or harmful?: No Has a concern about medication side effects?: No Expresses concern over the cost of medications?: No Outcomes/Goals: Verbalizes medications,desired effect & common side effects @ DC, Pt self-reports following medication regimen, Keeps card in wallet w/medications listed by DC and Other additional outcome/goals: Interventions/plans: Instruct on medication effects & side effects, Review medication list w/patient every two weeks, Instruct importance of taking meds as ordered & assist problem solving and Other additional 30-day Reassessments:: Progressing Reassessment Notes & Comments:: encouraged to take meds Tobacco Use Tobacco Use: Non-smoker Hypertension Hypertension Diagnosis:: Hypertension ICD-10 I10 Resting Blood Pressure:: 100/78 [place] [employer] Hypertension Guidelines Peak Exercise Blood Pressure:: 198/100 Outcomes/Goals: Able to verbalize/achieve optimal blood pressure <130/80, Incorporates diet changes & exercise for blood pressure control by DC and Other additional outcomes/goals Interventions/plan: Instruct on optimal blood pressure, hypertension & medications, Instruct on effects of sodium, alcohol, stress, exercise &hypertension and Other additional plan/interventions 30 day Reassessments:: Progressing Reassessment Notes & Comments:: risk factors explained Tobacco Cessation Referral Smoking Cessation Referral:: No Individual Education/Counseling:: No Education Schedule Given:: Yes Psychosocial - 30-Day Assess VIsit Date of Eval: 02/02/23 Session #:: 11 History of previous Mental disease:: No Target Goals Target Goals Psychosocial - 60-Day Assess Target Goals Target Goals Psychosocial - 90-Day Assess Target Goals Target Goals Psychosocial - Final Assessmen Target Goals Target Goals Nutrition - 90-Day Assessment Weight Mgt (Other Care) Height: 5 ft 10 in Weight:: 178 lb 8 oz BMI: 25.6 Nutrition - Final Assessment Weight Mgt (Other Care) Height: 5 ft 10 in Weight:: 178 lb 8 oz BMI: 25.6
[2023-02-02 11:44] VITALS: BP 100/78; BMI 25.6
== END 2023-02-07 23:59 ==
LOC: CR 15:45
PROVIDERS: PCP Family Medicine; Referring Provider Internal Medicine Cardiovascular Disease; Visit Provider Internal Medicine Cardiovascular Disease
DX: I21.4 Non-ST elevation (NSTEMI) myocardial infarction (principal); I25.10 Atherosclerotic heart disease of native coronary artery without angina pectoris; Z95.5 Presence of coronary angioplasty implant and graft; I24.9 Acute ischemic heart disease, unspecified
CPT/HCPCS: 93798

== ENCOUNTER 2023-03-09 15:45 | Outpatient (RCR) | payer BC, SELFPAY ==
[2023-02-02 11:44] VITALS: BMI 25.6
[2023-02-08 00:40] VITALS: BP 100/78
== END 2023-03-10 23:59 ==
LOC: CR 15:45
PROVIDERS: PCP Family Medicine; Referring Provider Internal Medicine Cardiovascular Disease; Visit Provider Internal Medicine Cardiovascular Disease
DX: I21.4 Non-ST elevation (NSTEMI) myocardial infarction (principal); I25.10 Atherosclerotic heart disease of native coronary artery without angina pectoris; Z95.5 Presence of coronary angioplasty implant and graft
CPT/HCPCS: 93798

== ENCOUNTER → 2023-03-11 | Outpatient (CLI) | payer BC, SELFPAY ==
--- NOTE | 2023-03-07 08:09 | CR.ITP_ITS ---
Nutrition - Initial Assessment Weight Mgt (Other Care) Height: 5 ft 10 in Weight:: 170 lb BMI: 24.3 Psychosocial - Initial Assess Target Goals Target Goals Referral to Behavioral Health PS - Interventions: Yes: Attend Stress Management Classes and No: Referral to Behavioral Health if PHQ-9 score >9: and No: Referral to Physician if PHQ-9 if score is 5-9: Patient Health Questionnaire PHQ-9 Screening 60-Day Re-eval Assessment: 1. Little interest or pleasure in doing things: Not at all 2. Feeling down, depressed, or hopeless: Not at all 3. Trouble falling or staying asleep, or sleeping too much: Not at all 4. Feeling tired or having little energy: Not at all 5. Poor appetite or overeating: Not at all 6. Feeling bad about yourself -- or that you are a failure or have let yourself or your family down: Not at all 7. Trouble concentrating on things, such as reading the newspaper or watching television: Not at all 8. Moving or speaking so slowly that other people could have noticed. Or the opposite - being so fidgety or restless that you have been moving around a lot more than usual: Not at all 9. Thoughts that you would be better off , or of hurting yourself in some way: Not at all How difficult have these problems made it for you to do your work, take care of things at home, or get along with other people?: Not difficult at all Total Score: 0 Self-Efficacy 6-Item Scale 60-Day Re-eval Assessment: We would like to know how confident you are in doing certain activities. Please select your confidence level for: Fatigue Select Number: 10 Physical Discomfort or Pain Select Number: 10 Emotional Distress Select Number: 10 Other Symptoms or Health Problems Select Number: 10 Different Tasks and Activities Select Number: 10 Medication Select Number: 10 Total Score:: 10 Nutrition Survey Nutrition Survey Instructions Scoring Instructions Exercise - 60-day Assessment Visit Date of Eval: 03/07/23 Session #:: 24 Physician Prescribed Exercise Modalities: Treadmill, Rower and Airdyne Frequency: 3x/week for 12 weeks [36 sessions] Intensity: 60-80% of age predicted maximum heart rate reserve Duration: 30 - 45 minutes Current METSs:: 9.5 Target Heart Rate:: 134-452 Current RPE:: 12-13 Maximum Excercise HR:: 138 Resting Blood Pressure: 100/80 Maximum Exercise Blood Pressure: 132/90 EKG Type: NSR to sinus tach with no ectopy. Current Physical Activity or Exercising minutes: 38:32 Outcomes & Goals Goals:: Verbalizes understanding of THR, RPE & goal METS by session 6, Documents in home exercise log/reports 30 min aerobic 5 day/wk by DC and Demonstrates accurate pulse taking by DC Intervention & Plan Exercise Program Goals: Instruct on personal THR & RPE, Instruct on MET level & personal MET goal, Show patient to take own pulse /validate performance until accurate and Instruct on home exercise 30-day Reassessments 30 day Reassessments:: Met Physical Activity Home Exercise Physical Activity - Home Exercise: Safe Exercise, Warm-up, Self-monitoring, Cool-Down, Home Exercise > 30 min Daily and Sitting Time <3 hours/daily Outcomes & Goals Outcomes/Goals: Demonstrates correct Warm-up/exercise Cool-Down (S3) if = 2.5 METs, Verbalizes symptoms of exercise intolerance by Session 3 (S3) and Demonstrate safe equipment use (S3) & follows exercise prescrition (6) Intervention & Plan Plan/Intervention: Instruct warm-up & cool-down if exercising at > 2 METs, Instruct on symptoms of exercise intolerance & actions to take, Instruct & monitor on saf and Assess intial functional capacity & safety risk 30-day Reassessments 30 day Reassessments:: Met Nutrition - 30-Day Assessment Weight Mgt (Other Care) Height: 5 ft 10 in Weight:: 170 lb BMI: 24.3 Nutrition - 60-Day Assessment Program Goals Nutrition Program Goals Patient has diagnosis of Hyperlipidemia (ICD E78)?: Yes Visit Date of Eval: 03/07/23 Session #:: 24 Cholesterol/Lipids (Other Core Measures) Total Triglycerides (mg/dL): 317 Total Cholesterol: 146 LDL Cholesterol (mg/dL): 62 HDL Cholesterol (mg/dL): 21 Determine presence & major risk factors that modify LDL goal: Hypertension or hypertensive medication, Low HDL cholesterol <40 mg/dL* and Family history of premature CHD in Male < 55 years: female <65 yearsFa Outcomes/Goals: Pt IDs own risk factors & lifestyle modifications by Session 10, Verbalizes symptoms of angina & response by session 3. and Pt independently manages Intervention/Plan: Instruct on personal lipid levels & lipid goals/NCEP guidelines and Instruct on cholesterol Referral to dietitian:: Yes 30-day Reassessments:: Progressing Diabetes (Other Core Measures) Diabetes Type: Diagnosis Type II ICD-10 E11 Insulin dependent injection/pump?: Yes Non-Insulin Dependent?: Yes Do you monitor your blood sugar at home?: Yes Referral to Diabetic Clinic:: Yes Outcomes/Goals:: Able to state symptoms of, Able to state and Able to state Intervention/Plan:: Instruct on and Instruct on 30-day Reassessments:: Progressing Weight Mgt (Other Care) Not Applicable: Yes Height: 5 ft 10 in Weight:: 170 lb BMI: 24.3 Diagnosis Overweight/Obesity BMI> 30% ICD-10 E66: No Diagnosis High BMI/Morbid Obesity BMI> 35% ICD-10 Z68: No Outcomes/Goals: Pt sets, maintains & shows weight loss goal & trend during rehab Intervention/Plan: Instruct on ideal BMI & set weight loss goal w/patient 30 day Reassessments:: Met Healthy Eating Habits Will attend diet classes:: Yes Outcomes/Goals:: Consume diet rich in vegs,fruits,whole grain/high fiber,fish,lean meat and Limit sat/trans fats,cholesterol & added salts & sugars Intervention/Plan:: Assess current eating habits 30-day Reassessments:: Progressing Education Gave educational materials for:: Healthy eating Core - 60-Day Assessment Visit Date of Eval: 03/07/23 Session #:: 24 Medication Compliance Preventative Medication(s):: Aspirin, Ticagrelor/P2Y12 inhibitor, Statin/lipid and Beta yesenia H/O mental health issues: depression, anxiety, or addiction?: Yes Doesn?t believe in the benefits of treatment?: No Believes medications are unnecessary or harmful?: No Has a concern about medication side effects?: No Outcomes/Goals: Verbalizes medications,desired effect & common side effects @ DC , Pt self-reports following medication regimen and Keeps card in wallet w/medications listed by DC Interventions/plans: Instruct on medication effects & side effects, Review me dication list w/patient every two weeks and Instruct importance of taking meds as ordered & assist problem solving 30-day Reassessments:: Met Tobacco Use Tobacco Use: Non-smoker Hypertension Hypertension Diagnosis:: Hypertension ICD-10 I10 Resting Blood Pressure:: 100/80 [place] [employer] Hypertension Guidelines Peak Exercise Blood Pressure:: 186/100 Outcomes/Goals: Able to verbalize/achieve optimal blood pressure <130/80 and Incorporates diet changes & exercise for blood pressure control by DC Interventions/plan: Instruct on optimal blood pressure, hypertension & medications and Instruct on effects of sodium, alcohol, stress, exercise &hypertension 30 day Reassessments:: Met Tobacco Cessation Referral Smoking Cessation Referral:: No Individual Education/Counseling:: No Education Schedule Given:: Yes Psychosocial - 30-Day Assess Target Goals Target Goals Referral to Behavioral Health PS - Interventions: Yes: Attend Stress Management Classes and No: Referral to Behavioral Health if PHQ-9 score >9: and No: Referral to Physician if PHQ-9 if score is 5-9: Outcomes/Goals: See list Psychosocial Outcomes/Goals:: ID's personal stressors & 2 strategies to manage stress by discharge Psychosocial - 60-Day Assess VIsit Date of Eval: 03/07/23 Session #:: 24 Not Applicable: Yes History of previous Mental disease:: No Target Goals Target Goals Psychosocial Test Tool Used:: PHQ-9 Questionnaire phq-9 Severity Referral to Behavioral Health PS - Interventions: Yes: Attend Stress Management Classes and No: Referral to Behavioral Health if PHQ-9 score >9: and No: Referral to Physician if PHQ-9 if score is 5-9: Outcomes/Goals: See list Psychosocial Outcomes/Goals:: ID's personal stressors & 2 strategies to manage stress by discharge Intervention/Plan: See List Interventions/Plan:: Assess stressors,coping strategies & signs of derpression on admission, Instruct/assist pt to develop coping & personal stress Mgt strategies, Instruct patient to recognize signs & symptoms of depression and Instruct patient to recog 30-day Reassessments: 30 day Reassessments:: Met Psychosocial - 90-Day Assess Target Goals Target Goals Referral to Behavioral Health PS - Interventions: Yes: Attend Stress Management Classes and No: Referral to Behavioral Health if PHQ-9 score >9: and No: Referral to Physician if PHQ-9 if score is 5-9: Psychosocial - Final Assessmen Target Goals Target Goals Referral to Behavioral Health PS - Interventions: Yes: Attend Stress Management Classes and No: Referral to Behavioral Health if PHQ-9 score >9: and No: Referral to Physician if PHQ-9 if score is 5-9: Nutrition - 90-Day Assessment Weight Mgt (Other Care) Height: 5 ft 10 in Weight:: 170 lb BMI: 24.3 Nutrition - Final Assessment Weight Mgt (Other Care) Height: 5 ft 10 in Weight:: 170 lb BMI: 24.3
[2023-03-07 08:16] VITALS: BP 100/80; BMI 24.3
--- NOTE | 2023-03-11 10:53 | ECHOL_ITS ---
Reason For Study: CHF Procedure This was a limited 2D transthoracic echocardiogram. Exam performed in department. Left Ventricle Normal LV size. Left ventricular systolic function is normal. The estimated ejection fraction is 57 %. No regional wall motion abnormalities noted. Right Ventricle Normal RV size. Normal systolic function. Atria Normal left atrium. Normal right atrium. Mitral Valve Normal mitral valve. Tricuspid Valve Normal tricuspid valve. Aortic Valve Bicuspid aortic valve. Pulmonic Valve Normal pulmonic valve. Great Vessels Normal aortic root. Pericardium/Pleural No pericardial effusion. MMode/2D Measurements & Calculations LVIDd: 5.6 cm IVSd: 0.64 cm LAV(MOD-bp): 44.0 ml LVIDs: 4.4 cm LVPWd: 0.82 cm LAV(MOD-bp) Indexed: 21.8 ml/m2 FS: 21.0 % LAV(MOD-sp2): 45.2 ml LAV(MOD-sp4): 33.6 ml SV(MOD-sp4): 71.3 ml LVAd ap4: 35.7 cm2 LVAd ap2: 34.4 cm2 LVLd ap4: 9.1 cm LVLd ap2: 9.4 cm EDV(MOD-sp4): 115.6 ml EDV(MOD-sp2): 105.6 ml EDV(sp4-el): 118.4 ml EDV(sp2-el): 107.1 ml LVAs ap4: 19.7 cm2 LVAs ap2: 18.7 cm2 LVLs ap4: 7.6 cm LVLs ap2: 7.7 cm ESV(MOD-sp4): 44.4 ml ESV(MOD-sp2): 38.7 ml ESV(sp4-el): 43.2 ml ESV(sp2-el): 38.5 ml EF(MOD-sp4): 61.6 % EF(MOD-sp2): 63.4 % EF(sp4-el): 63.5 % SV(MOD-sp2): 66.9 ml SV(sp4-el): 75.1 ml LA A4 area: 12.8 cm2 LA dimension(2D): 3.4 cm RA A4 area: 15.6 cm2 ECHO/Echo, Limited Study Interpretation Summary Normal LV size. Left ventricular systolic function is normal. The estimated ejection fraction is 57 %. The global longitudinal strain is normal. The global longitudinal strain = -17 % (normal). Compared to previous study, the left ventricular systolic function has improved.. Ordering Physician: Lauryn Louis Referring Physician: Lauryn Louis Performed By: Ana Brown RCS
== END | disposition home or self-care (01) ==
LOC: CVS 10:52
PROVIDERS: PCP Family Medicine; Referring Provider Physician Assistant Medical; Visit Provider Physician Assistant Medical
DX: I21.4 Non-ST elevation (NSTEMI) myocardial infarction (principal); I25.10 Atherosclerotic heart disease of native coronary artery without angina pectoris; I25.5 Ischemic cardiomyopathy; Z95.5 Presence of coronary angioplasty implant and graft
CPT/HCPCS: 93308

== ENCOUNTER → 2023-03-18 | Outpatient (CLI) | payer BC, SELFPAY ==
[2023-03-07 08:16] VITALS: BMI 24.3
[2023-03-18 15:30] LABS: Anion Gap 4 (5-15); BUN 16 mg/dL (7-18); BUN/Creat Ratio 17.5 RATIO (10-20); Calcium,Total 8.9 mg/dL (8.5-10.1); Chloride 105 mmol/L (98-107); Cholesterol 72 mg/dL (200); Creatinine, Serum 0.91 mg/dL (0.70-1.30); EST Glomerular Filtration Rate 97 mL/min (>60); Est Glom Filt Rate - Afr Amer 117 mL/min (>60); Glucose 108 mg/dL (74-106); High Density Lipoprotein 26 mg/dL; Potassium 4.2 mmol/L (3.5-5.1); Sodium Level 137 mmol/L (136-145); Triglycerides 84 mg/dL; Very Low Density Lipoprotein 17 mg/dL (5-40)
[2023-03-18 15:57] LABS: Microalbumin,Random Urine 6.8 mg/L (NO RANGE EST.); Microalbumin:Creatinine Ratio 7.6 mg/g CRE (<30 mg/g CRE)
== END | disposition home or self-care (01) ==
LOC: MFPLAB 11:38
PROVIDERS: PCP Family Medicine; Visit Provider Family Medicine
DX: E11.9 Type 2 diabetes mellitus without complications (principal)
CPT/HCPCS: 36415; 80048; 80061; 82043; 82570

== ENCOUNTER 2023-04-08 15:15 | Outpatient (RCR) | payer BC, SELFPAY ==
[2023-03-07 08:16] VITALS: BMI 24.3
[2023-03-11 00:19] VITALS: BP 100/78
--- NOTE | 2023-04-06 08:26 | CR.ITP_ITS ---
Nutrition - Initial Assessment Weight Mgt (Other Care) Height: 5 ft 10 in Weight:: 178 lb BMI: 25.5 Psychosocial - Initial Assess Target Goals Target Goals Patient Health Questionnaire PHQ-9 Screening 90-Day Re-eval Assessment: 1. Little interest or pleasure in doing things: Not at all 2. Feeling down, depressed, or hopeless: Not at all 3. Trouble falling or staying asleep, or sleeping too much: Not at all 4. Feeling tired or having little energy: Several days 5. Poor appetite or overeating: Not at all 6. Feeling bad about yourself -- or that you are a failure or have let yourself or your family down: Not at all 7. Trouble concentrating on things, such as reading the newspaper or watching television: Not at all 8. Moving or speaking so slowly that other people could have noticed. Or the opposite - being so fidgety or restless that you have been moving around a lot more than usual: Not at all 9. Thoughts that you would be better off , or of hurting yourself in some way: Not at all How difficult have these problems made it for you to do your work, take care of things at home, or get along with other people?: Not difficult at all Total Score: 1 Self-Efficacy 6-Item Scale 90-Day Re-eval Assessment: We would like to know how confident you are in doing certain activities. Please select your confidence level for: Fatigue Select Number: 7 Physical Discomfort or Pain Select Number: 8 Emotional Distress Select Number: 8 Other Symptoms or Health Problems Select Number: 5 Different Tasks and Activities Select Number: 8 Medication Select Number: 10 Total Score:: 7 Nutrition Survey Nutrition Survey Instructions Scoring Instructions Exercise - 90-day Assessment Visit Date of Eval: 04/06/23 Session #:: 34 Physician Prescribed Exercise Modalities: Treadmill, Rower and Airdyne Frequency: 3x/week for 12 weeks [36 sessions] Intensity: 60-80% of age predicted maximum heart rate reserve Duration: 30 - 45 minutes Current METSs:: 10 Target Heart Rate:: 134-152 Current RPE:: 12-13 Maximum Excercise HR:: 136 Resting Blood Pressure: 110/74 Maximum Exercise Blood Pressure: 156/90 EKG Type: NSR to ST with rare pac Outcomes & Goals Goals:: Verbalizes understanding of THR, RPE & goal METS by session 6, Documents in home exercise log/reports 30 min aerobic 5 day/wk by DC, Demonstrates accurate pulse taking by DC and Other additional outcome/goals: see below Intervention & Plan Exercise Program Goals: Instruct on personal THR & RPE, Instruct on MET level & personal MET goal, Show patient to take own pulse /validate performance until accurate, Instruct on home exercise and Other additional plan/int 30-day Reassessments 30 day Reassessments:: Met Physical Activity Home Exercise Physical Activity - Home Exercise: Safe Exercise, Warm-up, Self-monitoring, Cool-Down, Home Exercise > 30 min Daily and Sitting Time <3 hours/daily Outcomes & Goals Outcomes/Goals: Demonstrates correct Warm-up/exercise Cool-Down (S3) if = 2.5 METs, Verbalizes symptoms of exercise intolerance by Session 3 (S3), Demonstrate safe equipment use (S3) & follows exercise prescrition (6) and Other: See below Intervention & Plan Plan/Intervention: Instruct warm-up & cool-down if exercising at > 2 METs, Instruct on symptoms of exercise intolerance & actions to take, Instruct & monitor on saf, Assess intial functional capacity & safety risk and Other See below 30-day Reassessments 30 day Reassessments:: Met Nutrition - 30-Day Assessment Weight Mgt (Other Care) Height: 5 ft 10 in Weight:: 178 lb BMI: 25.5 Nutrition - 60-Day Assessment Weight Mgt (Other Care) Height: 5 ft 10 in Weight:: 178 lb BMI: 25.5 Core - 90 Day Assessment Visit Date of Eval: 04/06/23 Session #:: 34 Medication Compliance Preventative Medication(s):: Aspirin, Ticagrelor/P2Y12 inhibitor, Statin/lipid and Beta yesenia H/O mental health issues: depression, anxiety, or addiction?: Yes Doesn?t believe in the benefits of treatment?: No Believes medications are unnecessary or harmful?: No Has a concern about medication side effects?: No Expresses concern over the cost of medications?: No Outcomes/Goals: Verbalizes medications,desired effect & common side effects @ DC, Pt self-reports following medication regimen, Keeps card in wallet w/medications listed by DC and Other additional outcome/goals: Interventions/plans: Instruct on medication effects & side effects, Review medication list w/patient every two weeks, Instruct importance of taking meds as ordered & assist problem solving and Other additional 30-day Reassessments:: Met Tobacco Use Tobacco Use: Non-smoker Hypertension Hypertension Diagnosis:: Hypertension ICD-10 I10 Resting Blood Pressure:: 110/74 [place] [employer] Hypertension Guidelines Peak Exercise Blood Pressure:: 156/90 Outcomes/Goals: Able to verbalize/achieve optimal blood pressure <130/80, Incorporates diet changes & exercise for blood pressure control by DC and Other additional outcomes/goals Interventions/plan: Instruct on optimal blood pressure, hypertension & medications, Instruct on effects of sodium, alcohol, stress, exercise &hypertension and Other additional plan/interventions 30 day Reassessments:: Met Tobacco Cessation Referral Smoking Cessation Referral:: No Individual Education/Counseling:: No Education Schedule Given:: Yes Psychosocial - 30-Day Assess Target Goals Target Goals Psychosocial - 60-Day Assess Target Goals Target Goals Psychosocial - 90-Day Assess VIsit Date of Eval: 04/06/23 Session #:: 34 History of previous Mental disease:: No Target Goals Target Goals 30-day Reassessments: 30 day Reassessments:: Met Psychosocial - Final Assessmen Target Goals Target Goals Nutrition - 90-Day Assessment Program Goals Nutrition Program Goals Patient has diagnosis of Hyperlipidemia (ICD E78)?: Yes Visit Date of Eval: 04/06/23 Session #:: 34 Cholesterol/Lipids (Other Core Measures) Determine presence & major risk factors that modify LDL goal: Cigarette smoking, Hypertension or hypertensive medication, Low HDL cholesterol <40 mg/dL*, Family history of premature CHD in Male < 55 years: female <65 yearsFa and Age men > 45 years; women >/= 55 years Outcomes/Goals: Pt IDs own risk factors & lifestyle modifications by Session 10, Verbalizes symptoms of angina & response by session 3., Pt independently manages and Other Additional Outcomes/Goals: Intervention/Plan: Advocate for lipid panel cholesterol medication if applicable, Instruct on personal lipid levels & lipid goals/NCEP guidelines, Instruct on cholesterol and Other additional plan/int 30-day Reassessments:: Met Diabetes (Other Core Measures) Diabetes Type: Diagnosis Type II ICD-10 E11 Insulin dependent injection/pump?: Yes Non-Insulin Dependent?: Yes Do you monitor your blood sugar at home?: Yes Outcomes/Goals:: Able to state symptoms of, Able to state, Able to state and Other additional Intervention/Plan:: Instruct on, Refer to, Instruct on and Other 30-day Reassessments:: Met Weight Mgt (Other Care) Height: 5 ft 10 in Weight:: 178 lb BMI: 25.5 Diagnosis Overweight/Obesity BMI> 30% ICD-10 E66: No Diagnosis High BMI/Morbid Obesity BMI> 35% ICD-10 Z68: No Outcomes/Goals: Pt sets, maintains & shows weight loss goal & trend during rehab and Other additional outcomes/goals Intervention/Plan: Instruct on ideal BMI & set weight loss goal w/patient, Assist pt to ID & incorporate diet changes for weight loss by S9, Refer to Structured Weight Loss program as appropriate, Encourage goal of using 250- 300dcal per session for weight loss and Other additional plan/interventions 30 day Reassessments:: Met Healthy Eating Habits Will attend diet classes:: Yes Outcomes/Goals:: Consume diet rich in vegs,fruits,whole grain/high fiber,fish,lean meat, Limit sat/trans fats,cholesterol & added salts & sugars and Other additional outcome/goals: Intervention/Plan:: Assess current eating habits and Other Additional plan/interventions 30-day Reassessments:: Met Education Gave educational materials for:: Signs & symptoms of hypoglycemia, Signs & symptoms of hyperglycemia, Relate diabetes to coronary artery disease and Healthy eating Nutrition - Final Assessment Weight Mgt (Other Care) Height: 5 ft 10 in Weight:: 178 lb BMI: 25.5
[2023-04-06 08:35] VITALS: BP 110/74; BMI 25.5
== END 2023-04-09 23:59 ==
LOC: CR 15:15
PROVIDERS: PCP Family Medicine; Referring Provider Internal Medicine Cardiovascular Disease; Visit Provider Internal Medicine Cardiovascular Disease
DX: I21.4 Non-ST elevation (NSTEMI) myocardial infarction (principal); Z95.5 Presence of coronary angioplasty implant and graft; I25.10 Atherosclerotic heart disease of native coronary artery without angina pectoris; I24.9 Acute ischemic heart disease, unspecified
CPT/HCPCS: 93798

== ENCOUNTER → 2023-09-19 | Outpatient (CLI) | payer BC, SELFPAY ==
[2023-04-06 08:35] VITALS: BMI 25.5
[2023-09-19 11:01] LABS: Microalbumin,Random Urine 6.5 mg/L (NO RANGE EST.); Microalbumin:Creatinine Ratio 8.3 mg/g CRE (<30 mg/g CRE)
[2023-09-19 11:31] LABS: ALB/GLOB Ratio 1.1 RATIO (0.9-2.4); AST(SGOT) 30 U/L (15-37); Alanine Aminotransfer ALT/SGPT 77 U/L (16-61); Albumin, Serum 4.2 g/dL (3.2-5.0); Alkaline Phosphatase 93 U/L (45-117); Anion Gap 6 (5-15); BUN 16 mg/dL (7-18); BUN/Creat Ratio 16.8 RATIO (10-20); Calcium,Total 9.2 mg/dL (8.5-10.1); Chloride 106 mmol/L (98-107); Cholesterol 87 mg/dL (200); Creatinine, Serum 0.95 mg/dL (0.70-1.30); EST Glomerular Filtration Rate 92 mL/min (>60); Est Glom Filt Rate - Afr Amer 111 mL/min (>60); Globulin 3.7 g/dL (2.2-4.2); Glucose 122 mg/dL (74-106); High Density Lipoprotein 29 mg/dL; Potassium 4.3 mmol/L (3.5-5.1); Protein, Total 7.9 g/dL (6.4-8.2); Sodium Level 139 mmol/L (136-145); Triglycerides 100 mg/dL; Very Low Density Lipoprotein 20 mg/dL (5-40)
== END | disposition home or self-care (01) ==
LOC: MFPLAB 08:51
PROVIDERS: PCP Family Medicine; Visit Provider Family Medicine
DX: E11.9 Type 2 diabetes mellitus without complications (principal)
CPT/HCPCS: 36415; 80053; 80061; 82043; 82570

== ENCOUNTER → 2024-02-23 | Outpatient (CLI) | payer BC, SELFPAY ==
[2023-04-06 08:35] VITALS: BMI 25.5
[2024-02-23 10:34] LABS: Microalbumin,Random Urine 5.1 mg/L (NO RANGE EST.); Microalbumin:Creatinine Ratio 6.8 mg/g CRE (<30 mg/g CRE)
[2024-02-23 12:36] LABS: ALB/GLOB Ratio 1.1 RATIO (0.9-2.4); AST(SGOT) 25 U/L (15-37); Alanine Aminotransfer ALT/SGPT 56 U/L (16-61); Albumin, Serum 4.1 g/dL (3.2-5.0); Alkaline Phosphatase 101 U/L (45-117); Anion Gap 8 (5-15); BUN 17 mg/dL (7-18); BUN/Creat Ratio 20.8 RATIO (10-20); Chloride 104 mmol/L (98-107); Cholesterol 97 mg/dL (200); Creatinine, Serum 0.82 mg/dL (0.70-1.30); EST Glomerular Filtration Rate 109 mL/min (>60); Est Glom Filt Rate - Afr Amer 132 mL/min (>60); Globulin 3.7 g/dL (2.2-4.2); Glucose 143 mg/dL (74-106); High Density Lipoprotein 29 mg/dL; Protein, Total 7.8 g/dL (6.4-8.2); Sodium Level 135 mmol/L (136-145); Triglycerides 109 mg/dL; Very Low Density Lipoprotein 22 mg/dL (5-40)
[2024-02-24 15:09] LABS: Lipoprotein A 144.5 nmol/L (<75.0)
== END | disposition home or self-care (01) ==
LOC: MFPLAB 08:56
PROVIDERS: Nurse Practitioner Family; PCP Family Medicine; Visit Provider Family Medicine
DX: E11.9 Type 2 diabetes mellitus without complications (principal)
CPT/HCPCS: 36415; 80053; 80061; 82043; 82570; 83695

== ENCOUNTER → 2024-05-23 | Outpatient (CLI) | payer BC, SELFPAY ==
[2023-04-06 08:35] VITALS: BMI 25.5
[2024-05-23 10:39] LABS: ALB/GLOB Ratio 1.1 RATIO (0.9-2.4); AST(SGOT) 27 U/L (15-37); Alanine Aminotransfer ALT/SGPT 57 U/L (16-61); Albumin, Serum 4.1 g/dL (3.2-5.0); Alkaline Phosphatase 102 U/L (45-117); Anion Gap 5 (5-15); BUN 14 mg/dL (7-18); BUN/Creat Ratio 14.5 RATIO (10-20); Calcium,Total 8.9 mg/dL (8.5-10.1); Chloride 104 mmol/L (98-107); Cholesterol 103 mg/dL (200); Creatinine, Serum 0.97 mg/dL (0.70-1.30); EST Glomerular Filtration Rate 90 mL/min (>60); Est Glom Filt Rate - Afr Amer 109 mL/min (>60); Globulin 3.6 g/dL (2.2-4.2); Glucose 167 mg/dL (74-106); High Density Lipoprotein 30 mg/dL; Potassium 4.7 mmol/L (3.5-5.1); Protein, Total 7.7 g/dL (6.4-8.2); Sodium Level 138 mmol/L (136-145); Triglycerides 136 mg/dL; Very Low Density Lipoprotein 27 mg/dL (5-40)
== END | disposition home or self-care (01) ==
LOC: MFPLAB 08:59
PROVIDERS: PCP Family Medicine; Referring Provider Family Medicine; Visit Provider Family Medicine
DX: E11.9 Type 2 diabetes mellitus without complications (principal)
CPT/HCPCS: 36415; 80053; 80061

== ENCOUNTER → 2024-07-20 | Outpatient (CLI) | payer BC, SELFPAY ==
[2023-04-06 08:35] VITALS: BMI 25.5
--- NOTE | 2024-07-20 13:52 | STE_ITS ---
Reason For Study: CAD/ASHD Stress Results Protocol: Roland Protocol Maximum Predicted HR: 177 bpm Target HR: 150 bpm % Maximum Predicted HR: 102 % DurationHeart Rate Stage (mm:ss) (bpm) BP BASELINE 83 130/88 STAGE 1 3:00 101 142/90 STAGE 2 3:00 117 160/90 STAGE 3 3:00 142 178/92 STAGE 4 1:34 181 180/90 RECOVERY 109 132/82 Stress Duration: 10:34 mm:ss Maximum Stress HR: 181 bpm Baseline Echocardiogram Findings Stress Echo Wall motion Data Resting WM Intermediate WM Stress WM ECHO/Stress Test Echo w/o Contrast Interpretation Summary Exercise stress echo. 44-year-old male with a history of coronary disease and bicuspid aortic valve. Resting EKG demonstrates normal sinus rhythm with a rate of 75 bpm normal inter vals are noted resting blood pressure is 130/88 mmHg. The patient exercised according to the r egular Roland protocol for a total duration of 11 minutes and 34 seconds the maximum heart rate attain ed was 181 bpm which was 102% of max impacted heart rate the maximum workload was 13.4 metabolic equ ivalents. At rest there were no ST or T wave changes noted suggest ischemia at peak exercise upsl oping ST changes were noted. Did not meet the criteria for ischemia. No clinical angina was noted the test was terminated due to leg fatigue. The peak blood pressure was noted to be 180/90 mmHg which w as a normal blood pressure response to exercise. No arrhythmias were noted. Stress echocardiogram. Next the resting echocardiogram demonstrated preserved l eft ventricular systolic function estimated at 55% at rest with a mildly dilated aortic root bu t and normally opening aortic valve. At peak exercise there was thickening of all garcia and re duction of low ventricular cavity size peaking of ejection fraction of 65% with no wall motion abnormalities present. Conclusion: Exercise stress echocardiogram with no evidence of ischemia noted at a high wor kload. Normal resting and stress echocardiographic images. Preserved ejection fraction. Good functional capacity. Ordering Physician: Steven Watson Referring Physician: Steven Watson Performed By: Yara Stewart RDCS
== END | disposition home or self-care (01) ==
PROVIDERS: PCP Family Medicine; Referring Provider Internal Medicine Cardiovascular Disease; Visit Provider Internal Medicine Cardiovascular Disease
DX: I25.10 Atherosclerotic heart disease of native coronary artery without angina pectoris (principal); Q23.1 Congenital insufficiency of aortic valve
CPT/HCPCS: 93017; 93350

== ENCOUNTER → 2024-09-03 | Outpatient (CLI) | payer BC, SELFPAY ==
[2023-04-06 08:35] VITALS: BMI 25.5
[2024-09-03 10:59] LABS: Microalbumin,Random Urine 5.9 mg/L (NO RANGE EST.); Microalbumin:Creatinine Ratio 13.4 mg/g CRE (<30 mg/g CRE)
[2024-09-04 06:45] LABS: ALB/GLOB Ratio 1.2 RATIO (0.9-2.4); AST(SGOT) 23 U/L (15-37); Alanine Aminotransfer ALT/SGPT 53 U/L (16-61); Albumin, Serum 4.2 g/dL (3.2-5.0); Alkaline Phosphatase 104 U/L (45-117); Anion Gap 7 (5-15); BUN 14 mg/dL (7-18); BUN/Creat Ratio 15.9 RATIO (10-20); Calcium,Total 9.3 mg/dL (8.5-10.1); Chloride 103 mmol/L (98-107); Cholesterol 120 mg/dL (200); Creatinine, Serum 0.88 mg/dL (0.70-1.30); EST Glomerular Filtration Rate 100 mL/min (>60); Est Glom Filt Rate - Afr Amer 121 mL/min (>60); Globulin 3.5 g/dL (2.2-4.2); Glucose 191 mg/dL (74-106); High Density Lipoprotein 36 mg/dL; Potassium 4.4 mmol/L (3.5-5.1); Protein, Total 7.7 g/dL (6.4-8.2); Sodium Level 135 mmol/L (136-145); Triglycerides 89 mg/dL; Very Low Density Lipoprotein 18 mg/dL (5-40)
== END | disposition home or self-care (01) ==
LOC: MFPLAB 09:09
PROVIDERS: PCP Family Medicine; Referring Provider Family Medicine; Visit Provider Family Medicine
DX: E11.9 Type 2 diabetes mellitus without complications (principal)
CPT/HCPCS: 36415; 80053; 80061; 82043; 82570